=== PATIENT | male | born 1970 | race Caucasian/White ===

== ENCOUNTER 2018-05-01 09:39 | Outpatient (CLI) | payer BC, SELFPAY ==
[2018-05-01 13:02] LABS: Absolute Basophil Count 0.02 k/cumm (0.0-0.2); Absolute Eosinophil Count 0.11 k/cumm (0.0-0.7); Absolute Lymphocyte Count 1.69 k/cumm (1.2-3.4); Basophils % 0.5; Eosinophils % 2.5; HCT 45.3 % (40.0-50.0); HGB 15.1 g/dL (13.5-17.5); Lymphocytes % 39.1; Mean Corp. HGB Concentration 33.3 g/dL (32.0-36.0); Mean Corpuscular Hemoglobin 28.4 pg (27.0-33.0); Mean Corpuscular Volume 85.2 fL (80-95); Mean Platelet Volume 10.4 fL (8.0-11.0); Monocytes % 6.9; Platelet Count 232 x1000/uL (130-400); RBC 5.32 m/cumm (4.50-6.00); RBC Distribution Width 13.6 % (11.8-14.1); White Blood Cell Count 4.32 k/cumm (4.4-10.8)
[2018-05-01 13:28] LABS: Bilirubin Negative (Negative); Blood Negative (Negative); Clarity Clear; Glucose Negative (Negative); Ketones Negative (Negative); Leukocyte Esterase Negative (Negative); Nitrite Negative (Negative); Specific Gravity 1.025 (1.005-1.025); Urobilinogen 0.2 EU/dL (Up TO 0.2); pH 5.5 (5-8)
[2018-05-01 13:29] LABS: ALT 45 U/L (12-78); AST 21 U/L (15-37); Albumin 4.2 g/dL (3.4-5.0); Alkaline Phosphatase 56 U/L (46-116); BUN 21 mg/dL (7-18); Bilirubin, Total 0.8 mg/dL (0.2-1.0); CREATININE 0.86 mg/dL (0.70-1.30); Calcium 8.6 mg/dL (8.5-10.1); Chloride 106 mmol/L (98-107); Cholesterol 183 mg/dL (50-200); Glucose 111 mg/dL (70-100); HDL Cholesterol 48 mg/dL (40-60); LDL CHOLESTEROL 122 mg/dL (<100); Potassium 4.4 mmol/L (3.5-5.1); Sodium 143 mmol/L (136-145); Total Protein 7.3 g/dL (6.4-8.2); Triglyceride 69 mg/dL (30-150)
[2018-05-01 14:56] LABS: ESR 8 MM/HR (0-15)
[2018-05-04 08:00] LABS: Vitamin D 25 Total 32.5 ng/ml (30-100)
[2018-05-04 12:52] LABS: Lyme Ab w Rflx to Lyme Confirm Positive
[2018-05-05 13:46] LABS: IgG Band(s) p41 kDa; IgG Western Blot Negative (Negative); IgM Band(s) SEE COMMENTS kDa; IgM Western Blot Negative (Negative); Western Blot Interpretation SEE COMMENTS
== END 2018-05-01 09:59 ==
PROVIDERS: PCP Family Medicine; Visit Provider Family Medicine
DX: R53.83 Other fatigue (principal); M79.18 Myalgia, other site; M25.50 Pain in unspecified joint; Z83.3 Family history of diabetes mellitus; Z87.442 Personal history of urinary calculi
CPT/HCPCS: 36415; 80053; 80061; 82306; 83721; 85652; 81003; 85025; 86617; 86618

== ENCOUNTER 2018-11-27 02:07 | Outpatient (CLI) | payer BC, SELFPAY ==
[2018-11-27 11:05] LABS: Abs Immature Grans 0.01 k/cumm (0.0-0.09); Absolute Basophil Count 0.03 k/cumm (0.0-0.2); Absolute Eosinophil Count 0.42 k/cumm (0.0-0.7); Absolute Lymphocyte Count 1.41 k/cumm (1.2-3.4); Absolute Monocyte Count 0.26 k/cumm (0.11-0.7); Absolute Neutrophil Count 3.61 k/cumm (1.2-6.7); Basophils % 0.5; Eosinophils % 7.3; HCT 44.8 % (40.0-50.0); Immature Grans % 0.2; Lymphocytes % 24.6; Mean Corp. HGB Concentration 33.5 g/dL (32.0-36.0); Mean Corpuscular Hemoglobin 28.2 pg (27.0-33.0); Mean Corpuscular Volume 84.2 fL (80-95); Mean Platelet Volume 10.4 fL (8.0-11.0); Monocytes % 4.5; Neutrophils % 62.9; Platelet Count 241 x1000/uL (130-400); RBC 5.32 m/cumm (4.50-6.00); RBC Distribution Width 14.1 % (11.8-14.1); White Blood Cell Count 5.74 k/cumm (4.4-10.8)
[2018-11-27 11:16] LABS: Hemoglobin A1C 5.8 % (4.5-6.2)
[2018-11-27 11:24] LABS: ALT 46 U/L (12-78); AST 20 U/L (15-37); Alkaline Phosphatase 59 U/L (46-116); Anion Gap 8.4 mmol/L (3-11); BUN 20 mg/dL (7-18); Bilirubin, Total 0.8 mg/dL (0.2-1.0); CO2 26.6 mmol/L (21.0-32.0); CREATININE 0.88 mg/dL (0.70-1.30); Calcium 8.8 mg/dL (8.5-10.1); Chloride 106 mmol/L (98-107); Cholesterol 198 mg/dL (50-200); Glucose 111 mg/dL (70-100); HDL Cholesterol 48 mg/dL (40-60); LDL CHOLESTEROL 134 mg/dL (<100); Potassium 4.5 mmol/L (3.5-5.1); Sodium 141 mmol/L (136-145); TSH (W/Ref FT4) 0.46 uIU/mL (0.358-3.74); Total Protein 7.1 g/dL (6.4-8.2); Triglyceride 56 mg/dL (30-150)
[2018-11-30 11:13] LABS: PSA, Screening 0.3 ng/ml (0-2.5)
== END 2018-11-27 02:27 ==
PROVIDERS: PCP Family Medicine; Visit Provider Family Medicine
DX: I95.9 Hypotension, unspecified (principal); R53.83 Other fatigue; R73.01 Impaired fasting glucose; Z83.3 Family history of diabetes mellitus; Z12.5 Encounter for screening for malignant neoplasm of prostate
CPT/HCPCS: 36415; 80053; 80061; 83721; 84153; 83036; 84443; 85025

== ENCOUNTER 2018-12-04 08:42 | Outpatient (CLI) | payer BC, SELFPAY ==
[2018-12-08 15:42] LABS: Testosterone, Free 5.68 ng/dL (4.26-16.4); Testosterone, Total 203 ng/dL (240-950)
== END 2018-12-04 09:02 ==
PROVIDERS: PCP Family Medicine; Visit Provider Family Medicine
DX: N52.9 Male erectile dysfunction, unspecified (principal); R53.83 Other fatigue
CPT/HCPCS: 36415; 84402; 84403

== ENCOUNTER 2021-10-26 10:28 | Outpatient (CLI) | payer BC, SELFPAY ==
[2021-10-26 11:45] LABS: Source Nasal/Nares
[2021-10-26 14:08] LABS: COVID-19 PCR Negative (Negative)
== END 2021-10-26 10:29 | disposition home or self-care (01) ==
LOC: LBO 10:29
PROVIDERS: PCP Nurse Practitioner Family; Visit Provider Surgery
DX: Z20.822 Contact with and (suspected) exposure to COVID-19 (principal)
CPT/HCPCS: 87635

== ENCOUNTER 2021-10-29 11:17 | Day surgery (SDC) | payer BC, SELFPAY ==
--- NOTE | 2021-10-29 06:51 | COLE_ITS ---
Colonoscopy Report Date of procedure: 10/29/21 Pre-op diagnosis general: Diarrhea and unintentional weight loss Post-op diagnosis procedure note: same Procedure: Colonoscopy with biopsies Surgeon: Regina Maria Anesthesia Type: General:No Airway Estimated blood loss (mL): 5 Pathology: other (randome biopsies of the large intestine) Complications: None Disposition: same day Indications: Mr. Maria is a pleasant 51-year-old gentleman with unintentional weight loss and worsening diarrhea.? He also has crampy abdominal pain which does ease off once he goes to the bathroom.? He has no family history of colon cancer, ulcerative colitis or Crohn's disease.? We discussed colonoscopy to rule out inflammatory bowel disease or cancer.? Procedure in detail including the risks and benefits.? We reviewed the prep with the patient. Risks, benefits and complications have been reviewed. Complications include but are not limited to bleeding, pain, perforation, missed small lesion/polyp, sore throat, aspiration and adverse reaction to the medications. Questions were enter tained and answered to their satisfaction and they wished to proceed. No guarantees were given or implied. Proceed with colonoscopy under sedation Prep: Miralax/Dulcolax Procedure Start Time: 13:34 Procedure End Time: 13:57 Retraction Time: 15 minutes Findings: Normal appearing large intestine Procedure Description: After informed consent was obtained the patient was taken to the procedure room and placed in a left decubitous position. Monitors were applied and a time out was done. The patients name, date of , procedure, allergies to medications and metal in their body was reviewed. The patient was then sedated. Once sedated and comfortable a rectal exam was done. External exam was normal. Internal exam revealed a normal sphincter tone and no palpable masses. The prostate felt smooth. The scope was then introduced and retro-flexed. No internal hemorrhoids, polyps or masses were identified on retro-flexion. The scope was then advanced to the cecum without difficulty. The ileocecal vlave and appendiceal orifice were identified. The prep was good. The scope was then slowly retracted over 15 minutes back into the rectum. There were no polyps. There was no diverticulosis noted. The scope was removed and the patient was woken up and taken back to Same day surgery in stable condition. The patient tolerated the procedure well and there were no immediate complications. Follow up: The patient should follow up in 10 years unless they develop changes in bowel habits or other new gastrointestinal complaints.
--- NOTE | 2021-10-29 06:52 | W.PM.DSUDISC ---
Discharge Plan Disposition Patient Disposition: HOME Condition: Good Discharge Details Reason For Visit: Colonoscopy Attending Provider: Regina Maria Primary Care Provider: Franck Ivey Home Meds and New Rx's Prescriptions: New cholestyramine (with sugar) 4 gram powder in packet 1 packet PO TID Qty: 60 0RF Rx Instructions: administer w/meal; avoid other meds within 1hr before or 4-6hr after dose Discontinued polyethylene glycol 3350 17 gram powder in packet 255 g PO DAILY Qty: 15 0RF Rx Instructions: Mix 255 gm in 64 oz of gatorade or juice. Drink as directed bisacodyl [Dulcolax (bisacodyl)] 5 mg tablet,delayed release (DR/EC) 5 mg PO ONCE Qty: 4 0RF Rx Instructions: Take as directed for your colonoscopy Discharge Instructions Additional Instructions: Findings: Your intestine looked normal. I did do biopsies. I will let you know the results. Medications: Please try the cholestyramine and see if it helps with the diarrhea Follow up: 2-3 weeks Please call if you develop: fevers >101.5 Nausea or Vomiting Abdominal pain that is not transient Rectal bleeding that is more then a tbsp A hard abdomen and inability to pass gas DAY SURGERY UNIT POST ENDOSCOPY INSTRUCTIONS Instructions for everyone who is given Anesthesia: For your safety, please do the following for the next 24 Hours: a. Do not drive or operate dangerous equipment b. Do not drink alcohol beverages or use any recreational drugs for the first 24 hours or while taking pain medications. The medications in your body may have a reaction that can be dangerous. c. Do not make any important decisions or sign any important papers 1. Generally there are no restrictions on your activity after a day or so has gone by, but you may feel a bit fatigued for a few days. 2. After you arrive home you may have a light meal and return to a normal diet as you can tolerate it without feeling sick to your stomach. 3. After surgery, you may feel pain or discomfort. This should be only transient, but if it persists please contact your doctor. 4. If there are any questions regarding the findings of your procedure, please feel free to contact your doctor. 6. If you are unable to contact your doctor with a problem, contact the hospital at [phone]. 7. Continue all your regular medications unless directed otherwise. I understand the above instructions and have no questions. Signature of Patient or Responsible Adult Escort Date/Time Name of Responsible Adult Escort Signature of Nurse Date/Time Stand Alone Forms: Anesthesia Discharge Inst.Hallie (DSU) Activity:: Activity as Tolerated Diet:: As Tolerated Discharge Orders Discharge Orders: Discharge Order (Routine); Ordered 10/29/21 Ordered By: Regina Maria
[2021-10-29 11:48] VITALS: BP 132/95; PULSE 77; RESP 16; TEMP 36.7; O2SAT 98
--- NOTE | 2021-10-29 12:23 | W.ANESPRE ---
General Info Date of Service Date Performed: 10/29/21 Height: 6 ft 1 in Weight: 109.2 kg Body Mass Index (BMI): 31.7 Surgical Procedure: Operation Date: 10/29/21 13:20 Proposed Procedure Side Surgeon p Colonoscopy Regina Maria MD Meds Allergies and Home Medications Allergies Allergy/AdvReac Type Severity Reaction Status Date / Time No Known Allergies Allergy Verified 10/29/21 11:54 Home Medication Medication Instructions Recorded bisacodyl 5 mg tablet,delayed 5 mg PO ONCE #4 tab 10/26/21 release (Dulcolax (bisacodyl)) polyethylene glycol 3350 17 gram 255 g PO DAILY #15 ea 10/26/21 oral powder packet Current Visit Medications: Current Medications Generic Name Dose Route Start Last Admin Trade Name Freq PRN Reason Stop Dose Admin Hyoscyamine Sulfate 0.125 mg 10/29/21 06:53 Hyoscyamine 0.125 Mg Sl/Oral/Chew SL DIRECTED PRN Ringer's Solution 1,000 mls @ 80 mls/hr 10/29/21 06:00 IV 11/25/21 23:59 [facility] IV Miscellaneous Supplies 1 each 10/29/21 06:00 Iv Access IV 11/25/21 23:59 DIRECTED ULYSSES Ondansetron HCl 4 mg 10/29/21 06:53 Ondansetron 4 Mg/2 Ml Vial IVP Q4H PRN PRN Nausea / Vomiting Sodium Chloride 0 ml 10/29/21 06:00 Normal Saline Flush 10 Ml Syr IV 11/25/21 23:59 PRN PRN Sodium Chloride 0 ml 10/29/21 06:00 Normal Saline 10 Ml Vial IJ 11/25/21 23:59 DIRECTED PRN Sterile Water 0 ml 10/29/21 06:00 Water,Injection,Sterile 10 Ml Vial IJ 11/25/21 23:59 DIRECTED PRN PFSH Active Problems Active Problems: Problem Status Onset Code Family history of diabetes mellitus Z83.3 Impaired fasting glucose R73.01 Unintended weight loss R63.4 Diarrhea R19.7 Medical History Medical History ADD (attention deficit disorder) Back pain Calculus of left kidney (11/19/16) Conjunctivitis Fatigue Right ureteral stone (08/11/16) Surgical History Surgical History (Updated 10/29/21 @ 11:54 by Jenni Dobbins) H/O hand surgery 1999 RECONSTRUCTIVE LEFT HAND SURGERY History of cystoscopy Tobacco Smoking/Tobacco Use Status: Never Alcohol Alcohol Intake: never Substance Use Substance use: Never Substance use type: does not use Vital Signs and Lab Results Vital Signs Most Recent Vital Signs in EMR: Most Recent Vital Signs Temp Pulse Resp BP Pulse Ox 36.7 C 77 16 132/95 H 98 10/29/21 11:48 10/29/21 11:48 10/29/21 11:48 10/29/21 11:48 10/29/21 11:48 Lab Results Blood Type / Crossmatch: No Data to Display Complete Blood Count: No Data to Display Complete Metabolic Panel: No Data to Display Liver Function Panel: No Data to Display Coagulation Panel: No Data to Display Cardiac Panel: No Data to Display Arterial Blood Gas: No Data to Display Venous Blood Gas: No Data to Display Pancreas Panel: No Data to Display Thyroid Panel: No Data to Display Infectious Disease: Coronavirus (COVID-19)(PCR) Negative (Negative) 10/26/21 10:30 10/26/21 Coronavirus 2019 Source Nasal/Nares 10/26/21 10:30 10/26/21 Blood Cultures: No Data to Display Toxicology Panel: No Data to Display Anesthesia Assessment and Plan Anesthesia History Personal History: No History of Anesthesia Complications Family History: No Family History of Anesthesia Complications Exercise Tolerance Exercise Tolerance: Metabolic Equivalents>4 Pertinent Negatives Pertinent Negatives: No Symptoms of GERD Cardiac & Pulmonary Exam Cardiac Exam: Normal S1/S2 Heart Sounds Pulmonary Exam: Clear Bilateral Breath Sounds Implantable Cardiac Device Does patient have a Pacemaker or an ICD?: No Airway Exam Known Difficult Airway: No Mallampati Class: 2 Mouth Opening: Normal (> 3cm) Thyromental Distance: Greater than 3 cm Neck Range of Motion: Full ROM Neck Circumference: Normal Teeth Condition: Normal Dentition ASA Classification ASA Score: ASA 2 Emergency Case?: No NPO Status NPO Status: NPO Clears >2 hours, Solids >8 hours Anesthesia Plan Resuscitation Status: Full Code Anesthesia Technique: General Anesthesia Airway Planned: Natural Airway Monitors Used: Standard Monitors
[2021-10-29] MEDS: Lactated Ringers 1,000 ML 80 ML IV (12:26)
[2021-10-29 12:28] VITALS: BMI 31.7
--- NOTE | 2021-10-29 13:44 | BOWEL_PTH ---
PATIENT: Guille Maria LOC: [facility] U#:[id number] AGE/SX: 51/M ROOM: RE10/29/[address]: Regina Maria MD : 1970 BED: DIS: 10/29/2021 SPEC #: [id number] RECD: 10/29/21 17:12 STATUS: KIKO RE #: [id number] JACKELINE: 10/29/21 13:[address]: Regina Maria DEPT: Surgical Specimen RECD BY: Deb Herman ENTERED: 10/29/21 17:16 SP TYPE: Bowel OTHR DR: Franck Ivey, [employer] Tissues: 1 - BIOPSY BOWEL 2 - BIOPSY BOWEL 3 - BIOPSY BOWEL 4 - BIOPSY BOWEL Procedures: GROSS AND MICRO LEVEL 4 Comments: [id number]
[2021-10-29 14:02] VITALS: BP 115/75; PULSE 77; RESP 16; TEMP 36.5; O2SAT 98
--- NOTE | 2021-10-29 14:16 | W.ANESPOSTOP ---
Postoperative Evaluation Date, Time and Location Date Performed: 10/29/21 Time Performed: 14:16 Patient Location: Day Surgery Unit Vital Signs Most Recent Imported Vital Signs: Most Recent Vital Signs Temp Pulse Resp BP Pulse Ox 36.5 C 77 16 115/75 98 10/29/21 14:02 10/29/21 14:02 10/29/21 14:02 10/29/21 14:02 10/29/21 14:02 Pain Score Most Recent Pain Score: Most Recent Pain Score Pain Level 0 10/29/21 14:02 Assessment Mental Status: Awake (Alert & Oriented to Patient Baseline) Airway and Respiratory Function: Patent airway with normal (patient baseline) respiratory exam Cardiovascular Function: Hemodynamically Stable Hydration Status: Adequately Hydrated Nausea & Vomiting: No Nausea or Vomiting Pain: Pt. Denies Any Pain Peripheral Nerve Block: Patient did not receive a nerve block
[2021-10-29 14:34] VITALS: BP 122/87; PULSE 64; RESP 16; TEMP 36.6; O2SAT 99
== END 2021-10-29 14:43 | disposition home or self-care (01) ==
LOC: SUR 11:17
PROVIDERS: PCP Nurse Practitioner Family; Visit Provider Surgery
PROC: 0DJD8ZZ Inspection of Lower Intestinal Tract, Via Natural or Artificial Opening Endoscopic (ICD-10-PCS; CPT 45378; principal; 2021-10-29 13:15)
DX: R19.7 Diarrhea, unspecified (principal); R63.4 Abnormal weight loss; R10.9 Unspecified abdominal pain; K63.89 Other specified diseases of intestine
CPT/HCPCS: 45380; 88305; J2704

== ENCOUNTER 2021-10-31 02:55 | Outpatient (CLI) | payer BC, SELFPAY ==
[2021-10-31 12:48] LABS: HCT 40.4 % (40.0-50.0); HGB 13.9 g/dL (13.5-17.5); MCH 27.4 pg (27.0-33.0); MCHC 34.4 % (32.0-36.0); MCV 79.5 fL (80-95); MPV 9.6 fL (8.0-11.0); Platelet Count 254 10^3/uL (130-400); RBC 5.08 10^6/uL (4.36-5.78); RDW 12.6 % (11.8-14.1); RDW-SD 36.1 fL; WBC 5.12 10^3/uL (4.4-10.8)
[2021-10-31 13:01] LABS: Hemoglobin A1C 6.2 % (<5.7)
[2021-10-31 13:43] LABS: ALT 48 U/L (16-63); AST 19 U/L (15-37); Albumin 3.6 g/dL (3.4-5.0); Alkaline Phosphatase 79 U/L (46-116); Anion Gap 12.5 mmol/L (3-11); BUN 22 mg/dL (7-18); Bilirubin, Total 0.7 mg/dL (0.2-1.0); CO2 23.5 mmol/L (21.0-32.0); CREATININE 0.8 mg/dL (0.70-1.30); Calcium 8.8 mg/dL (8.5-10.1); Calculated LDL 94 mg/dL (<100); Chloride 107 mmol/L (98-107); Cholesterol 172 mg/dL (<200); Glucose 142 mg/dL (74-106); HDL Cholesterol 42 mg/dL (40-60); Sodium 143 mmol/L (136-145); Total Protein 6.8 g/dL (6.4-8.2); Triglyceride 181 mg/dL (<150)
[2021-10-31 14:06] LABS: TSH < 0.01 uIU/mL (0.36-3.74)
[2021-10-31 22:25] LABS: PSA, Screening 0.3 ng/mL (<=3.5)
== END 2021-10-31 02:56 | disposition home or self-care (01) ==
LOC: LBO 02:55
PROVIDERS: PCP Nurse Practitioner Family; Visit Provider Nurse Practitioner Family
DX: R53.83 Other fatigue (principal); Z13.1 Encounter for screening for diabetes mellitus; Z13.29 Encounter for screening for other suspected endocrine disorder; Z13.220 Encounter for screening for lipoid disorders; Z12.5 Encounter for screening for malignant neoplasm of prostate
CPT/HCPCS: 36415; 80053; 80061; 84153; 85027; 83036; 84443

== ENCOUNTER 2021-11-15 02:30 | Outpatient (CLI) | payer BC, SELFPAY ==
[2021-11-15 17:49] LABS: FREE T4 2.53 ng/dL (0.76-1.46)
[2021-11-15 18:18] LABS: TSH < 0.01 uIU/mL (0.36-3.74)
== END 2021-11-15 02:31 | disposition home or self-care (01) ==
LOC: LBO 02:30
PROVIDERS: PCP Nurse Practitioner Family; Visit Provider Nurse Practitioner Family
DX: R79.89 Other specified abnormal findings of blood chemistry (principal); R73.03 Prediabetes; E07.89 Other specified disorders of thyroid
CPT/HCPCS: 36415; 84439; 84443; 84481

== ENCOUNTER 2022-01-10 03:56 | Outpatient (CLI) | payer BC, SELFPAY ==
[2022-01-10 15:28] LABS: FREE T4 1.91 ng/dL (0.76-1.46)
[2022-01-10 15:36] LABS: TSH < 0.01 uIU/mL (0.36-3.74)
[2022-01-10 22:28] LABS: T3, Total 308 ng/dL (97-169)
== END 2022-01-10 03:57 | disposition home or self-care (01) ==
LOC: LBO 03:56
PROVIDERS: PCP Nurse Practitioner Family; Visit Provider Student in an Organized Health Care Education/Training Program
DX: E05.90 Thyrotoxicosis, unspecified without thyrotoxic crisis or storm (principal)
CPT/HCPCS: 36415; 84439; 84443; 84480

== ENCOUNTER 2022-01-29 03:31 | Outpatient (CLI) | payer BC, SELFPAY ==
[2022-01-29 15:34] LABS: Abs Immature Grans 0.03 10^3/uL (0.0-0.06); Absolute Basophil Count 0.03 10^3/uL (0.0-0.2); Absolute Eosinophil Count 0.15 10^3/uL (0.0-0.7); Absolute Lymphocyte Count 2.21 10^3/uL (1.2-3.4); Absolute Monocyte Count 0.42 10^3/uL (0.1-0.8); Absolute Neutrophil Count 4.33 10^3/uL (1.2-6.7); Basophils % 0.4; Eosinophils % 2.1; HCT 40.7 % (40.0-50.0); HGB 13.7 g/dL (13.5-17.5); Immature Grans % 0.4; Lymphocytes % 30.8; MCH 27.6 pg (27.0-33.0); MCHC 33.7 % (32.0-36.0); MCV 82 fL (80-95); MPV 9.9 fL (8.0-11.0); Monocytes % 5.9; Neutrophils % 60.4; Platelet Count 295 10^3/uL (130-400); RBC 4.97 10^6/uL (4.36-5.78); RDW 14.1 % (11.8-14.1); RDW-SD 41.3 fL; WBC 7.17 10^3/uL (4.4-10.8)
[2022-01-29 17:11] LABS: FREE T4 1.71 ng/dL (0.76-1.46)
[2022-01-29 17:16] LABS: TSH < 0.01 uIU/mL (0.36-3.74)
[2022-01-29 22:39] LABS: T3, Total 301 ng/dL (97-169)
== END 2022-01-29 03:32 | disposition home or self-care (01) ==
PROVIDERS: PCP Nurse Practitioner Family; Visit Provider Student in an Organized Health Care Education/Training Program
DX: E05.90 Thyrotoxicosis, unspecified without thyrotoxic crisis or storm (principal)
CPT/HCPCS: 36415; 84439; 84443; 84480; 85025

== ENCOUNTER 2022-02-27 03:11 | Outpatient (CLI) | payer BC, SELFPAY ==
[2022-02-27 16:41] LABS: FREE T4 1.25 ng/dL (0.76-1.46)
[2022-02-27 16:47] LABS: TSH < 0.01 uIU/mL (0.36-3.74)
[2022-02-27 21:57] LABS: T3, Total 220 ng/dL (97-169)
== END 2022-02-27 03:12 | disposition home or self-care (01) ==
LOC: LBO 03:11
PROVIDERS: PCP Nurse Practitioner Family; Visit Provider Student in an Organized Health Care Education/Training Program
DX: E05.90 Thyrotoxicosis, unspecified without thyrotoxic crisis or storm (principal)
CPT/HCPCS: 36415; 84439; 84443; 84480

== ENCOUNTER 2022-04-26 02:14 | Outpatient (CLI) | payer BC, SELFPAY ==
[2022-04-26 13:44] LABS: FREE T4 0.71 ng/dL (0.76-1.46); TSH 0.22 uIU/mL (0.36-3.74)
[2022-04-26 22:10] LABS: T3, Total 138 ng/dL (97-169)
== END 2022-04-26 02:15 | disposition home or self-care (01) ==
LOC: LBO 02:14
PROVIDERS: PCP Nurse Practitioner Family; Visit Provider Student in an Organized Health Care Education/Training Program
DX: E05.90 Thyrotoxicosis, unspecified without thyrotoxic crisis or storm (principal)
CPT/HCPCS: 36415; 84439; 84443; 84480

== ENCOUNTER 2022-06-05 03:43 | Outpatient (CLI) | payer BC, SELFPAY ==
[2022-06-05 15:56] LABS: Abs Immature Grans 0.02 10^3/uL (0.0-0.06); Absolute Basophil Count 0.02 10^3/uL (0.0-0.2); Absolute Eosinophil Count 0.15 10^3/uL (0.0-0.7); Absolute Lymphocyte Count 2.74 10^3/uL (1.2-3.4); Absolute Monocyte Count 0.44 10^3/uL (0.1-0.8); Absolute Neutrophil Count 3.23 10^3/uL (1.2-6.7); Basophils % 0.3; Eosinophils % 2.3; HCT 44.7 % (40.0-50.0); HGB 15.1 g/dL (13.5-17.5); Immature Grans % 0.3; Lymphocytes % 41.5; MCH 28.6 pg (27.0-33.0); MCHC 33.8 % (32.0-36.0); MCV 85 fL (80-95); MPV 9.5 fL (8.0-11.0); Monocytes % 6.7; Neutrophils % 48.9; Platelet Count 265 10^3/uL (130-400); RBC 5.28 10^6/uL (4.36-5.78); RDW 13.7 % (11.8-14.1); RDW-SD 42.9 fL
[2022-06-05 16:49] LABS: ALT 32 U/L (16-63); AST 17 U/L (15-37); Albumin 4.3 g/dL (3.4-5.0); Alkaline Phosphatase 88 U/L (46-116); Bilirubin, Direct 0.1 mg/dL (0.0-0.2); Bilirubin, Total 0.8 mg/dL (0.2-1.0); FREE T4 0.78 ng/dL (0.76-1.46); TSH 2.79 uIU/mL (0.36-3.74); Total Protein 7.9 g/dL (6.4-8.2)
[2022-06-05 22:32] LABS: T3, Total 163 ng/dL (97-169)
== END 2022-06-05 03:44 | disposition home or self-care (01) ==
PROVIDERS: PCP Nurse Practitioner Family; Visit Provider Student in an Organized Health Care Education/Training Program
DX: E05.90 Thyrotoxicosis, unspecified without thyrotoxic crisis or storm (principal)
CPT/HCPCS: 80076; 84439; 84443; 84480; 85025

== ENCOUNTER 2022-07-17 02:15 | Outpatient (CLI) | payer BC, SELFPAY ==
[2022-07-17 13:07] LABS: Abs Immature Grans 0.02 10^3/uL (0.0-0.06); Absolute Basophil Count 0.03 10^3/uL (0.0-0.2); Absolute Eosinophil Count 0.21 10^3/uL (0.0-0.7); Absolute Lymphocyte Count 2.31 10^3/uL (1.2-3.4); Absolute Monocyte Count 0.41 10^3/uL (0.1-0.8); Absolute Neutrophil Count 3.32 10^3/uL (1.2-6.7); Basophils % 0.5; Eosinophils % 3.3; HGB 14.5 g/dL (13.5-17.5); Immature Grans % 0.3; Lymphocytes % 36.7; MCH 29.2 pg (27.0-33.0); MCHC 33.7 % (32.0-36.0); MCV 87 fL (80-95); MPV 9.6 fL (8.0-11.0); Monocytes % 6.5; Neutrophils % 52.7; Platelet Count 223 10^3/uL (130-400); RBC 4.96 10^6/uL (4.36-5.78); RDW 13.4 % (11.8-14.1); RDW-SD 42.3 fL
[2022-07-17 14:04] LABS: ALT 33 U/L (16-63); AST 23 U/L (15-37); Albumin 4.2 g/dL (3.4-5.0); Alkaline Phosphatase 76 U/L (46-116); Bilirubin, Direct 0.2 mg/dL (0.0-0.2); FREE T4 0.98 ng/dL (0.76-1.46); TSH 1.66 uIU/mL (0.36-3.74); Total Protein 7.7 g/dL (6.4-8.2)
[2022-07-17 22:45] LABS: T3, Total 154 ng/dL (97-169)
== END 2022-07-17 02:16 | disposition home or self-care (01) ==
PROVIDERS: PCP Nurse Practitioner Family; Visit Provider Student in an Organized Health Care Education/Training Program
DX: E05.90 Thyrotoxicosis, unspecified without thyrotoxic crisis or storm (principal)
CPT/HCPCS: 36415; 80076; 84439; 84443; 84480; 85025

== ENCOUNTER 2022-09-23 02:57 | Outpatient (CLI) | payer BC, SELFPAY ==
[2022-09-23 14:37] LABS: Abs Immature Grans 0.03 10^3/uL (0.0-0.06); Absolute Basophil Count 0.04 10^3/uL (0.0-0.2); Absolute Eosinophil Count 0.14 10^3/uL (0.0-0.7); Absolute Lymphocyte Count 2.61 10^3/uL (1.2-3.4); Absolute Monocyte Count 0.37 10^3/uL (0.1-0.8); Absolute Neutrophil Count 3.45 10^3/uL (1.2-6.7); Basophils % 0.6; Eosinophils % 2.1; HCT 44.2 % (40.0-50.0); Immature Grans % 0.5; Lymphocytes % 39.3; MCH 28.8 pg (27.0-33.0); MCHC 33.9 % (32.0-36.0); MCV 85 fL (80-95); MPV 9.7 fL (8.0-11.0); Monocytes % 5.6; Neutrophils % 51.9; Platelet Count 254 10^3/uL (130-400); RBC 5.21 10^6/uL (4.36-5.78); RDW 12.8 % (11.8-14.1); RDW-SD 39.1 fL; WBC 6.64 10^3/uL (4.4-10.8)
[2022-09-23 15:18] LABS: ALT 41 U/L (16-63); AST 16 U/L (15-37); Albumin 4.3 g/dL (3.4-5.0); Alkaline Phosphatase 66 U/L (46-116); Bilirubin, Direct 0.1 mg/dL (0.0-0.2); Bilirubin, Total 0.6 mg/dL (0.2-1.0); FREE T4 0.94 ng/dL (0.76-1.46); TSH 1.79 uIU/mL (0.36-3.74); Total Protein 7.8 g/dL (6.4-8.2)
[2022-09-23 22:41] LABS: T3, Total 148 ng/dL (97-169)
[2022-09-23 23:17] LABS: Thyroperoxidase Antibody >1300 U/mL (<=60)
[2022-09-26 16:14] LABS: Thyroid Stimulating Immunoglob <1.0 TSI index (<=1.3)
== END 2022-09-23 02:58 | disposition home or self-care (01) ==
LOC: LBO 02:57
PROVIDERS: PCP Nurse Practitioner Family; Visit Provider Student in an Organized Health Care Education/Training Program
DX: E05.90 Thyrotoxicosis, unspecified without thyrotoxic crisis or storm (principal)
CPT/HCPCS: 36415; 80076; 84439; 84443; 84445; 84480; 85025; 86376

== ENCOUNTER 2022-10-29 03:13 | Outpatient (CLI) | payer BC, SELFPAY ==
[2022-10-29 15:44] LABS: FREE T4 1.03 ng/dL (0.76-1.46); TSH 0.33 uIU/mL (0.36-3.74)
[2022-10-30 20:33] LABS: T3, Total 182 ng/dL (97-169)
[2022-10-30 21:16] LABS: Thyroperoxidase Antibody >1300 U/mL (<=60)
[2022-11-04 16:09] LABS: Thyroid Stimulating Immunoglob <1.0 TSI index (<=1.3)
== END 2022-10-29 03:14 | disposition home or self-care (01) ==
LOC: LBO 03:13
PROVIDERS: PCP Nurse Practitioner Family; Visit Provider Student in an Organized Health Care Education/Training Program
DX: E05.90 Thyrotoxicosis, unspecified without thyrotoxic crisis or storm (principal)
CPT/HCPCS: 36415; 84439; 84443; 84445; 84480; 86376

== ENCOUNTER 2023-02-12 04:23 | Outpatient (CLI) | payer BC, SELFPAY ==
[2023-02-12 17:40] LABS: FREE T4 0.98 ng/dL (0.76-1.46); TSH 0.98 uIU/mL (0.36-3.74)
[2023-02-13 19:40] LABS: T3, Total 162 ng/dL (97-169)
== END 2023-02-12 04:24 | disposition home or self-care (01) ==
LOC: LBO 04:23
PROVIDERS: PCP Nurse Practitioner Family; Visit Provider Student in an Organized Health Care Education/Training Program
DX: E05.90 Thyrotoxicosis, unspecified without thyrotoxic crisis or storm (principal)
CPT/HCPCS: 36415; 84439; 84443; 84480

== ENCOUNTER 2023-03-05 01:33 | Outpatient (CLI) | payer BC, SELFPAY ==
--- NOTE | 2023-03-05 08:00 | DI.RAD_ITS ---
Exam(s) XR FOOT RT COMPLETE EXAM: XR FOOT RT COMPLETE CLINICAL HISTORY: Pain in the 2nd/3rd MTP joints area,m79.673. TECHNIQUE: 2D digital imaging was performed. Three views. COMPARISON: No exams were available for comparison FINDINGS: BONES: No acute fracture is present. No bony destructive lesion is seen. Tiny plantar calcaneal spur . JOINTS: No dislocation present. Mild narrowing 1st MTP joint. No significant hallux valgus. 2nd an d 3rd MTP joints appear normal. SOFT TISSUE: Normal. IMPRESSION: Mild degenerative changes of 1st MTP joint. DATA REPOSITORY: RADIATION DOSE DELIVERED:
== END 2023-03-05 01:53 ==
LOC: DI 01:33
PROVIDERS: PCP Nurse Practitioner Family; Visit Provider Nurse Practitioner Family
DX: M19.071 Primary osteoarthritis, right ankle and foot
CPT/HCPCS: 73630

== ENCOUNTER 2023-03-05 18:17 | Outpatient (CLI) | payer BC, SELFPAY ==
[2023-03-05 15:08] LABS: Calculated LDL 132 mg/dL (<100); Cholesterol 207 mg/dL (<200); HDL Cholesterol 47 mg/dL (40-60); Triglyceride 143 mg/dL (<150)
== END 2023-03-05 18:18 | disposition home or self-care (01) ==
LOC: LBO 18:17
PROVIDERS: PCP Nurse Practitioner Family; Visit Provider Nurse Practitioner Family
DX: Z13.220 Encounter for screening for lipoid disorders (principal)
CPT/HCPCS: 36415; 80061

== ENCOUNTER 2023-06-20 01:33 | Outpatient (CLI) | payer BC, SELFPAY ==
[2023-06-20 14:46] LABS: FREE T4 0.96 ng/dL (0.76-1.46); TSH 1.64 uIU/mL (0.36-3.74)
[2023-06-21 22:09] LABS: T3, Total 178 ng/dL (97-169)
== END 2023-06-20 01:34 | disposition home or self-care (01) ==
PROVIDERS: PCP Nurse Practitioner Family; Visit Provider Student in an Organized Health Care Education/Training Program
DX: M19.071 Primary osteoarthritis, right ankle and foot (principal)
CPT/HCPCS: 36415; 84439; 84443; 84480

== ENCOUNTER 2023-09-22 05:10 | Outpatient (CLI) | payer BC, SELFPAY ==
[2023-09-22 10:02] LABS: FREE T4 1.02 ng/dL (0.76-1.46); TSH 1.32 uIU/mL (0.36-3.74)
[2023-09-22 17:33] LABS: T3, Total 167 ng/dL (97-169)
[2023-09-24 16:47] LABS: Thyroid Stimulating Immunoglob <1.0 TSI index (<=1.3)
== END 2023-09-22 05:11 | disposition home or self-care (01) ==
PROVIDERS: PCP Nurse Practitioner Family; Visit Provider Student in an Organized Health Care Education/Training Program
DX: E05.90 Thyrotoxicosis, unspecified without thyrotoxic crisis or storm (principal)
CPT/HCPCS: 36415; 84439; 84443; 84445; 84480

== ENCOUNTER 2023-11-21 01:18 | Outpatient (CLI) | payer BC, SELFPAY ==
[2023-11-21 09:53] LABS: FREE T4 1.04 ng/dL (0.76-1.46); TSH 1.45 uIU/Ml (0.36-3.74)
[2023-11-21 18:14] LABS: T3, Total 177 ng/dL (97-169)
[2023-11-25 19:31] LABS: Thyroid Stimulating Immunoglob <1.0 TSI index (<=1.3)
== END 2023-11-21 01:19 | disposition home or self-care (01) ==
PROVIDERS: PCP Nurse Practitioner Family; Visit Provider Student in an Organized Health Care Education/Training Program
DX: E05.90 Thyrotoxicosis, unspecified without thyrotoxic crisis or storm (principal)
CPT/HCPCS: 36415; 84439; 84443; 84445; 84480

== ENCOUNTER 2024-03-26 01:21 | Outpatient (CLI) | payer BC, SELFPAY ==
[2024-03-26 12:08] LABS: Hemoglobin A1C 5.9 % (<5.7)
[2024-03-26 12:29] LABS: Calculated LDL 103 mg/dL (<100); Cholesterol 174 mg/dL (<200); HDL Cholesterol 44 mg/dL (40-60); TSH (W/Ref FT4) 0.79 uIU/mL (0.36-3.74); Triglyceride 139 mg/dL (<150)
[2024-03-26 22:37] LABS: PSA, Screening 0.3 ng/mL (<=3.5)
== END 2024-03-26 01:22 | disposition home or self-care (01) ==
PROVIDERS: PCP Nurse Practitioner Family; Visit Provider Nurse Practitioner Family
DX: E05.90 Thyrotoxicosis, unspecified without thyrotoxic crisis or storm (principal); Z13.1 Encounter for screening for diabetes mellitus; Z13.220 Encounter for screening for lipoid disorders; Z12.5 Encounter for screening for malignant neoplasm of prostate
CPT/HCPCS: 36415; 80061; 84153; 83036; 84443

== ENCOUNTER 2024-12-05 18:28 | Observation (INO) | payer BC, SELFPAY ==
[2024-12-05] VITALS (31 sets, daily range): BP systolic 128–171; BP diastolic 69–95; PULSE 50–69; RESP 13–25; TEMP 35.9–36.5; O2SAT 95–98
--- NOTE | 2024-12-05 18:30 | RT.EKG_ITS ---
APPROVED REPORT Exam: Resting ECG Reason for Exam: dizzy Patient Location: E HR:61 bpm ECG Measurements Heart Rate 61 AXIS MS 171 P 55 QRSd 96 QRS -21 QT 419 T 28 QTc 423 Conclusion Sinus rhythm, rate 61 No interval abnormalities No STEMI No priors available for comparison
--- NOTE | 2024-12-05 19:00 | DI.CT_ITS ---
Exam(s) CT BRAIN NECK CTA EXAM: CT BRAIN NECK CTA CLINICAL HISTORY: dizziness/JOE/nausea x 2 days, confusion 1 hr ago. TECHNIQUE: Imaging Protocol: Axial CT angiography was performed with multi-slice acquisition and mu lti-planar and/or 3D reconstructions. CONTRAST MATERIAL: Intravenous: Omnipaque 350 contrast volume:70 mL COMPARISON: No exams were available for comparison FINDINGS: CT Head W/O and W: Ventricles and Extra axial spaces: Normal in size and morphology for the patient's age. Hemorrhage: None. Cerebral parenchyma: There is an area of decreased attenuation in the anterior limb of the internal c apsule on the right. There is no mass effect. Midline shift: None. Brainstem/Cerebellum: Normal. Calvarium: Normal. Visualized Paranasal sinuses/Mastoids: Bilateral mucous retention cysts are seen in the maxillary sin uses. The remaining visualized paranasal sinuses and mastoid air cells are clear. Soft Tissues: Unremarkable. Enhancement: Unremarkable. CTA Neck W: Common Carotid: Right: No dissection, occlusion or significant stenosis. Left: No dissection, occlusion or significant stenosis. External Carotid: Right: No occlusion or significant stenosis. Left: No occlusion or significant stenosis. Internal Carotid: Right: No dissection, occlusion or significant stenosis. Left: No dissection, occlusion or significant stenosis. Vertebral Artery: Right: No dissection, occlusion or significant stenosis. Left: No dissection, occlusion or significant stenosis. Lung Apices: Normal. Bones: Within normal limits for the patient's age. Soft Tissues: Normal. Thyroid gland: There is a multinodular thyroid gland. The largest nodule measures 3.7 x 3.9 cm and i s located in the inferior left lobe. Nonemergent thyroid ultrasound is recommended for further evalu ation. CTA Brain W: Internal Carotid Arteries: Normal. Anterior Cerebral Arteries: Right: No aneurysm, occlusion or significant stenosis. Left: No aneurysm, occlusion or significant stenosis. Middle Cerebral Arteries: Right: No aneurysm, occlusion or significant stenosis. Left: No aneurysm, occlusion or significant stenosis. Posterior Cerebral Arteries: Right: No aneurysm, occlusion or significant stenosis. Left: No aneurysm, occlusion or significant stenosis. Vertebral Arteries: Right: No aneurysm, occlusion or significant stenosis. Left: No aneurysm, occlusion or significant stenosis. Basilar Artery: No aneurysm, occlusion or significant stenosis. IMPRESSION: 1. No large vessel occlusion or significant stenosis on the CT angiography of the head. 2. Area of decreased attenuation in the anterior limb of the right internal capsule likely reflecting a lacunar infarct. MRI of the brain may be obtained for further characterization. 3. No occlusion or significant stenosis on the CT angiography of the neck. 4. Multinodular thyroid gland. Nonemergent thyroid ultrasound is recommended for further evaluation. Unexpected findings RADIATION DOSE DELIVERED: 2,384.96mGy.cm Total DLP DATA REPOSITORY: All CT scans at this facility are submitted to the National Radiology Data Registry (NRDR) Dose Index Registry (DIR) with the [employer] (A[employer]). RADIATION OPTIMIZATION: All CT scans at this facility use at least one of these dose optimization te chniques: automated exposure control; mA and/or kV adjustment per patient size (includes targeted exa ms where dose is matched to clinical indication); or iterative reconstruction.
--- NOTE | 2024-12-05 19:00 | DI.RAD_ITS ---
Exam(s) XR CHEST 2V PA LATERAL EXAM: XR CHEST 2V PA LATERAL CLINICAL HISTORY: CVA workup TECHNIQUE: 2D digital imaging was performed of the chest. Two images were obtained. PA and lateral views were obtained. COMPARISON: No exams were available for comparison FINDINGS: MEDIASTINUM: Normal. HEART: Normal. PULMONARY VASCULATURE: Normal. LUNGS: Clear. PLEURAL SPACE: No pleural effusion or pneumothorax. BONE:Within normal limits for the patient's age. OTHER FINDINGS:Normal. IMPRESSION: 1. No acute pulmonary findings. 2. The preliminary [facility] report was reviewed. DATA REPOSITORY: RADIATION DOSE DELIVERED:
--- NOTE | 2024-12-05 19:18 | ED.GENADUL_ITS ---
Discharge Plan Discharge Details Chief Complaint: Dizzy/Sync Admit Date/Time: 12/05/24 21:54 Admit Provider: Guille Kinsey Attending Provider: Guille Kinsey Primary Care Provider: Franck Ivey ED Provider: Bijal Evans HPI General Date/Time Provider Initiated Documentation: 12/05/24 18:33 . HPI Narrative: Guille is a 54-year-old male presenting to the emergency dept for evaluation of dizziness accompanied by headache, nausea w decreased appetite, foggy headedness, and blurred vision. He began experiencing severe dizziness upon awakening on Friday morning, described as a sensation of being intoxicated. The dizziness is constant, intensifies with movement or head rotation. He also reports a persistent headache for several months, escalating in severity recently since the dizziness appeared, has described to his as the worst headache of my life. Ibuprofen provided temporary relief, but has only dulled the pain (taken today). His notes a recent episode of confusion (1 hour ago) while operating a tractor, leading to disorientation and a sensation of impending fall. He reports no slurred speech, facial droop, fever, extremity weakness/numbness, chest pain, shortness of breath, palpitations, vomiting, abdominal pain, changes in urination or bowel movements, diarrhea, unusual rashes, neck pain, or light sensitivity. He has noticed consistent blurring of vision since yesterday; says he normally has very clear vision at distance. No history of hypertension, HLD, diabetes, or recent head trauma. Currently on methimazole 2.5 mg daily for hyperthyroidism. Related Data Home Medications ?Medication ?Instructions ?Recorded ?Confirmed methimazole 5 mg tablet 2.5 mg PO .QOD 03/05/24 12/05/24 trazodone 50 mg tablet 50 mg PO QHS PRN sleep #90 tabs 03/05/24 12/05/24 Previous Rx's ?Medication ?Instructions ?Recorded trazodone 50 mg tablet 50 mg PO QHS PRN sleep #90 tabs 03/05/24 Allergies Allergy/AdvReac Type Severity Reaction Status Date / Time No Known Allergies Allergy Verified 12/05/24 18:32 General Stated Complaint: Dizzy/Sync JOSE LUIS: 3 Review of Systems Narrative: see HPI Exam Const General: cooperative, healthy appearing, no acute distress, well developed and well groomed Nutritional Appearance: average body habitus and well nourished Orientation: alert and oriented x3 HENMT Head: normal to inspection and atraumatic Ears: hearing grossly normal bilaterally General nose exam: external nose normal Face and sinus: normal facial exam Mouth: oral mucosae normal Teeth and gingiva: dentition normal Eyes Periorbital: periorbital findings normal Eyelids: eyelids normal Conjunctivae: conjunctivae normal Pupils: PERRL EOM: EOM intact bilaterally and nystagmus Neck Neck: normal visual inspection and full ROM Resp Effort & Inspection: normal respiratory effort and able to speak in complete sentences Auscultation: clear to auscultation bilaterally Cardio Jugular venous pressure: no JVD Rate: regular rate Rhythm: regular rhythm GI Inspection: normal to inspection Neuro General: patient alert, patient oriented x3, gait normal, tone normal, moves all extremities, no focal motor deficits and CN's II-XI intact bilaterally Cranial Nerves: CN's II-XI intact bilaterally, PERRL, EOM intact bilaterally, facial strength normal, able to elevate shoulders bilaterally and nystagmus Cognition: normal cognition Speech: speech normal Gait: normal gait Motor: muscle tone normal throughout and strength 5/5 throughout Sensory Exam: no sensory deficits noted Coordination: [id number] test normal and other (standing exam deferred due to significant dizziness with position change) Course Vital Signs Vital signs: Vital Signs Pulse 69 12/05/24 18:30 Respiratory Rate 18 12/05/24 18:30 Blood Pressure 171/94 H 12/05/24 18:30 Pulse Oximetry 98 12/05/24 18:30 Pulse 69 12/05/24 18:30 Respiratory Rate 16 12/05/24 18:48 Respiratory Effort Normal, Non-Labored 12/05/24 18:48 Respiratory Depth Normal 12/05/24 18:48 Respiratory Pattern Normal 12/05/24 18:48 Blood Pressure 171/94 H 12/05/24 18:30 Pulse Oximetry 98 12/05/24 18:30 Medical Decision Making Initial Assessment: 54-year-old male presenting with dizziness, headache, and confusion. Differential Diagnosis: - TIA/CVA: Persistent dizziness since Friday morning, worsens with movement and head turning, accompanied by nausea and blurry vision. Confusion episode approximately an hour ago while operating a tractor, feeling foggy since yesterday. No slurred speech, facial droop, or weakness. Initiate workup for TIA, including brain scan and vessel imaging. Arrange teleneurology consultation. - Cardiac arrhythmia -electrolyte imbalance -hypoglycemia -liver or kidney dysfunction ED Course: - Brain scan and vessel imaging ordered; no acute abnormalities noted, however a chronic right internal capsular lacunar infarction was noted. -Chest x-ray shows no acute abnormalities (confirmed by radiologist) EKG performed, normal sinus rhythm, rate 61. No changes consistent with acute ischemia, normal intervals. -I independently interpreted the following tests: CBC, CMP, BNP, PT/INR, aPTT, d-dimer, TSH, and serial troponins all reassuring. - Teleneurology consultation performed, discussed findings with Dr. Concepcion, who believes symptoms are due to an acute stroke. Recommend starting 324 mg aspirin x 1, followed by 81 mg daily. Inpatient evaluation with echo and MRI tomorrow, along with PT/OT evaluation. Clinical Impression: -CVA Disposition: - Admission: Patient admitted for further evaluation and management. MDM Components Evaluation: - Number of Differential Diagnoses or Management Options: TIA - Amount and Complexity of Data Reviewed: Brain scan, vessel imaging, teleneurology consultation, blood work - Risk of Complication and Morbidity or Mortality: High risk due to potential TIA and persistent symptoms. Quality:SDOH Health Related Social Needs: No Data to Display PFSH All Active Problems (Updated 12/05/24 @ 21:45 by Guille Kinsey) Depression (Chronic) TIA (transient ischemic attack) (Acute) Foot pain (Acute) ADD (attention deficit disorder) (Chronic) Hyperthyroidism (Chronic) Prediabetes (Acute) Low TSH level (Acute) Family history of diabetes mellitus (Acute) Impaired fasting glucose (Chronic) Unintended weight loss (Acute) Medical History Fatigue Right ureteral stone (03/07/16) Calculus of left kidney (11/19/16) Surgical History History of colonoscopy (~10/2021) History of cystoscopy H/O hand surgery 1998 RECONSTRUCTIVE LEFT HAND SURGERY Family History Father Diabetes Hypertension Social History Smoking/Tobacco Use Status: Never Second Hand Exposure: Yes Smoking risk assessment performed?: Yes Alcohol Intake: former Drug use: Never Substance use type: does not use Caregiver/Support person: No Household members: significant other Communication Needs: None Pets and animals: Yes Pets and animals: cat(s) Sexually active: Yes Do you think of yourself as: straight/heterosexual Current gender identity: male What is your relationship status?: living with partner How often do you talk on the phone with friends or family?: once per week Do you belong to any clubs or organized social groups?: yes Panel score (0-1 are the most socially isolated patients): 2 What type of physical activity do you participate in: none Roz/Restorationism: No preference Do you feel safe at home: Yes Do you feel safe in your relationship?: Yes
[2024-12-05] MEDS: Omnipaque 350 MG/ML 100 ML BTL IJ (19:21)
[2024-12-05] MEDS: Normal Saline - Diluent 50 ML VIAL IJ (19:22)
[2024-12-05 19:24] LABS: Abs Immature Grans 0.02 10^3/uL (0.0-0.06); Absolute Basophil Count 0.02 10^3/uL (0.0-0.2); Absolute Eosinophil Count 0.13 10^3/uL (0.0-0.7); Absolute Lymphocyte Count 2.33 10^3/uL (1.2-3.4); Absolute Monocyte Count 0.52 10^3/uL (0.1-0.8); Absolute Neutrophil Count 3.88 10^3/uL (1.2-6.7); Basophils % 0.3 %; Eosinophils % 1.9 %; HCT 45.8 % (40.0-50.0); HGB 14.9 g/dL (13.5-17.5); Immature Grans % 0.3 %; Lymphocytes % 33.8 %; MCH 27.8 pg (27.0-33.0); MCHC 32.5 % (32.0-36.0); MCV 85 fL (80-95); MPV 9.6 fL (8.0-11.0); Monocytes % 7.5 %; Neutrophils % 56.2 %; Platelet Count 267 10^3/uL (130-400); RBC 5.36 10^6/uL (4.36-5.78); RDW 13.3 % (11.8-14.1); RDW-SD 41.4 fL
[2024-12-05 19:36] LABS: INR 0.9 (0.9-1.1); PTT Activated 24.3 sec (20.6-30.2); Prothrombin Time 9.5 sec (9.1-11.1)
[2024-12-05 19:46] LABS: ALT 38 U/L (16-63); AST 14 U/L (15-37); Albumin 4.1 g/dL (3.4-5.0); Alkaline Phosphatase 59 U/L (46-116); Anion Gap 5.8 mmol/L (3-11); BUN 19 mg/dL (7-18); Bilirubin, Total 0.5 mg/dL (0.2-1.0); CO2 28.2 mmol/L (21.0-32.0); CREATININE 1.1 mg/dL (0.70-1.30); Calcium 8.7 mg/dL (8.5-10.1); Chloride 107 mmol/L (98-107); Estimated GFR 79.77 (mL/min/1.73m2); Glucose 116 mg/dL (74-106); Magnesium 1.9 mg/dL (1.8-2.4); Potassium 3.7 mmol/L (3.5-5.1); Sodium 141 mmol/L (136-145); TSH (W/Ref FT4) 2.57 uIU/mL (0.36-3.74); Total Protein 7.4 g/dL (6.4-8.2)
--- NOTE | 2024-12-05 19:51 | DI.[facility]_ITS ---
PROCEDURE INFORMATION: Exam: XR Chest Exam date and time: 12/05/2024 7:31 PM Age: 54 years old Clinical indication: Other: CVA workup; Additional info: Dizziness/ansari/nausea x 2 days, confusion 1 hr ago TECHNIQUE: Imaging protocol: Radiologic exam of the chest. Views: 2 views. COMPARISON: CT BRAIN NECK CTA 12/05/2024 7:06 PM FINDINGS: Lungs: Unremarkable. No consolidation. Pleural spaces: Unremarkable. No pleural effusion. No pneumothorax. Heart/Mediastinum: Unremarkable. No cardiomegaly. Bones/joints: Unremarkable. IMPRESSION: No acute findings. Dictated and Authenticated by: Jorge Noriega MD. Orderin Jessica Appiah MD
--- NOTE | 2024-12-05 19:54 | DI.VRAD_ITS ---
PROCEDURE INFORMATION: Exam: CTA Head Without And With Contrast, Arteriography Exam date and time: 12/05/2024 7:06 PM Age: 54 years old Clinical indication: Stroke-like symptoms; Altered mental status/memory loss and dizziness/giddiness and headache; Additional info: Dizziness/ansari/nausea x 2 days, confusion 1 hr ago TECHNIQUE: Imaging protocol: Computed tomographic angiography of the head without and with contrast. Exam focused on the arteries. 3D rendering (Not supervised by radiologist): MIP and/or 3D reconstructed images were created by the technologist. Contrast material: 350; Contrast volume: 70 ml; Contrast route: INTRAVENOUS (IV); Other technique: STROKE PROTOCOL was implemented. COMPARISON: No relevant prior studies available. FINDINGS: ANTERIOR CIRCULATION: Right internal carotid artery: Intracranial segment is patent with no significant stenosis or occlusion. No aneurysm. Right middle cerebral artery: No occlusion or significant stenosis. No aneurysm. Right anterior cerebral artery: No occlusion or significant stenosis. No aneurysm. Left internal carotid artery: Intracranial segment is patent with no significant stenosis. No aneurysm. Left middle cerebral artery: No occlusion or significant stenosis. No aneurysm. Left anterior cerebral artery: No occlusion or significant stenosis. No aneurysm. POSTERIOR CIRCULATION: Right vertebral artery: No occlusion or significant stenosis. No aneurysm. Left vertebral artery: No occlusion or significant stenosis. No aneurysm. Basilar artery: No occlusion or significant stenosis. No aneurysm. Right posterior cerebral artery: No occlusion or significant stenosis. No aneurysm. Left posterior cerebral artery: No occlusion or significant stenosis. No aneurysm. HEAD: Brain: Chronic right internal capsular lacunar infarction No hemorrhage. Unremarkable white matter. No mass effect. Cerebral ventricles: Normal. No ventriculomegaly. Bones: Unremarkable. No acute fracture. Paranasal sinuses: A polyp/retention cyst is noted in the right maxillary sinus.No fluid levels. Mastoid air cells: Visualized mastoids are normal. No mastoid effusion. Soft tissues: Unremarkable. IMPRESSION: 1. No large vessel occlusion. 2. Unremarkable CT head. ASSESSMENT: ASPECTS ([place] Stroke Program Early CT Score) is 10. PROCEDURE INFORMATION: Exam: CTA Neck Without And With Contrast Exam date and time: 12/05/2024 7:06 PM Age: 54 years old Clinical indication: Stroke-like symptoms; Altered mental status/memory loss and dizziness/giddiness and headache; Additional info: Dizziness/ansari/nausea x 2 days, confusion 1 hr ago TECHNIQUE: Imaging protocol: Computed tomographic angiography of the neck without and with contrast. Exam focused on the cervical segments of the vasculature. 3D rendering (Not supervised by radiologist): MIP and/or 3D reconstructed images were created by the technologist. Contrast material: 350; Contrast volume: 70 ml; Contrast route: INTRAVENOUS (IV); COMPARISON: No relevant prior studies available. FINDINGS: Right common carotid artery: No stenosis. No dissection or occlusion. Right internal carotid artery: No stenosis of the extracranial segment. No dissection or occlusion. Right external carotid artery: No occlusion or stenosis of the origin. Left common carotid artery: No stenosis. No dissection or occlusion. Left internal carotid artery: No stenosis of the extracranial segment. No dissection or occlusion. Left external carotid artery: No occlusion or stenosis of the origin. Right vertebral artery: No stenosis. No dissection or occlusion. Left vertebral artery: No stenosis. No dissection or occlusion. An independent origin to the left vertebral artery from the aortic arch is observed, a normal variant. Soft tissues: Multinodular goiter left greater than right with superior mediastinal extension and mass effect on the tracheoesophageal groove/upper thoracic esophagus No significant soft tissue swelling. Bones/joints: No acute fracture. IMPRESSION: No stenosis or occlusion. Multinodular thyroid with superior mediastinal extension on the left as noted REFERENCES: NASCET CRITERIA. The degree of stenosis in the cervical segment of the internal carotid artery is based on NASCET criteria. Normal is no stenosis. Mild is less than 50% stenosis. Moderate is 50-69% stenosis. Severe is 70% to 99% stenosis. Total occlusion is no detectable patent lumen. Dictated and Authenticated by: Jorge Noriega MD. Orderin Jessica Appiah MD
[2024-12-05 20:00] LABS: D-Dimer 190 ng/mlFEU (<500)
[2024-12-05 20:08] LABS: NT-proBNP 27 pg/mL (<300); Troponin I 6 ng/L (<or=76)
[2024-12-05] MEDS: Meclizine 25 MG TAB PO (20:40)
[2024-12-05] MEDS: Aspirin 81 MG CHEW 324 MG CH (20:40)
[2024-12-05 20:57] LABS: Troponin I 6 ng/L (<or=76)
[2024-12-05 21:01] LABS: Bilirubin Negative (Negative); Blood Negative (Negative); Clarity Clear (Clear); Glucose Negative (Negative); Ketones Trace mg/dL (Negative); Leukocyte Esterase Negative (Negative); Nitrite Negative (Negative); Specific Gravity 1.015 (1.005-1.025); Urobilinogen 0.2 mg/dL (Up to 0.2); pH 5.5 (5-8)
[2024-12-05 21:15] LABS: *AMPHETAMINES SCREEN URINE Negative (Negative); *BARBITURATES SCREEN URINE Negative (Negative); *BENZODIAZEPINES SCREEN URINE Negative (Negative); Cannabinoids THC Negative (Negative); Cocaine Screen,Urine Negative (Negative); METHADONE URINE SCREEN Negative (Negative); OPIATES URINE SCREEN Negative (Negative)
[2024-12-05 21:17] LABS: Tricyclic Antidepressants Negative (Negative)
--- NOTE | 2024-12-05 21:36 | W.PM.HP.N ---
Date of service: 12/05/24 Time of Service: 21:36 Assessment and Plan Assessment and plan (1) TIA (transient ischemic attack): Start date: 12/05/24 Status: Acute Assessment and plan: This is a 54-year-old gentleman who had transient symptoms sudden onset with vertiginous symptoms as well as associated headache and nausea. CTA of the head and neck were negative with teleneurology advising MRI with follow-up echocardiogram with bubble study, observation monitoring cardiac rhythm and full dose aspirin following up with daily low-dose aspirin. The patient has no history of previous CVA and teleneurology thought this may be consistent with a posterior CVA. They also recommended PT and OT for evaluation. Patient will be admitted for observation with above studies and evaluation and treatment. He will continue baby aspirin as an outpatient. He is a full code. (2) Hyperthyroidism: Status: Chronic Assessment and plan: Continue methimazole with TSH normal. (3) ADD (attention deficit disorder): Status: Chronic Assessment and plan: Not on treatment at this time, this may be increasing patient's stress with his job. (4) Depression: Status: Chronic Assessment and plan: On trazodone nightly which will be continued. 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 He also complained of blurred vision and he had brain fog with his stating that he was talking about doing some work with his tractor when he did not have the equipment he was discussing. His headache was over his left head from the front to the back and he has had similar headaches on the same side in the past. He did have associated nausea with his vertigo but also with a headache. He did tell his that his headache was worse headache that he has ever had. He had about 1 hour of confusion and was disoriented. This was when he was discussing his tractor. In the ED he was given meclizine for his dizziness which was helpful and he was treated for his headache with relief. He denies any nausea at the time I saw him and most of the above history was given by his with the patient still slightly withdrawn and appearing fatigued. He did have a sensation that he may fall when he was having his vertiginous dizziness. He reported to the ED for evaluation and CTA of the head and neck was unrevealing for an acute stroke or occlusion with teleneurology recommending observation with full dose aspirin given and then once a day low-dose aspirin, echocardiogram, PT/OT and MRI. He was given meclizine for his dizziness and Tylenol for his headache. The patient did not have persistent nausea. The patient is a full code. Review of Systems Narrative: 13 point review of systems otherwise unrevealing or stable. PFSH All Active Problems Acute CVA (cerebrovascular accident) (Acute) Depression (Chronic) TIA (transient ischemic attack) (Acute) Foot pain (Acute) ADD (attention deficit disorder) (Chronic) Hyperthyroidism (Chronic) Prediabetes (Acute) Low TSH level (Acute) Family history of diabetes mellitus (Acute) Impaired fasting glucose (Chronic) Unintended weight loss (Acute) Medical History Fatigue Right ureteral stone (03/07/16) Calculus of left kidney (11/19/16) Surgical History History of colonoscopy (~10/2021) History of cystoscopy H/O hand surgery 1998 RECONSTRUCTIVE LEFT HAND SURGERY Family History Father Diabetes Hypertension Social History Smoking/Tobacco Use Status: Never Second Hand Exposure: Yes Smoking risk assessment performed?: Yes Alcohol Intake: former Drug use: Never Substance use type: does not use Caregiver/Support person: No Household members: significant other Housing: house Communication Needs: None Pets and animals: Yes Pets and animals: cat(s) Sexually active: Yes Do you think of yourself as: straight/heterosexual Current gender identity: male What is your relationship status?: living with partner How often do you talk on the phone with friends or family?: once per week Do you belong to any clubs or organized social groups?: yes Panel score (0-1 are the most socially isolated patients): 2 What type of physical activity do you participate in: none Roz/Evangelical: No preference Do you feel safe at home: Yes Do you feel safe in your relationship?: Yes Meds Allergies and Home Medications Allergies Allergy/AdvReac Type Severity Reaction Status Date / Time No Known Allergies Allergy Verified 12/05/24 18:32 Home Medications ?Medication ?Instructions ?Recorded ?Confirmed ?Type methimazole 5 mg tablet 2.5 mg PO .QOD 03/05/24 12/05/24 History trazodone 50 mg tablet 50 mg PO QHS PRN sleep #90 tabs 03/05/24 12/05/24 Rx Exam Narrative Exam Narrative: General: Patient is appropriate for age, flattened affect with poor eye contact, alert and oriented to person, place and time. He does have slowed speech and monotonous tone. He is in no acute distress. HEENT: Normocephalic, eyes with pupils equal and react to light symmetrically, extraocular movement intact and sclera anicteric. No nystagmus. Oropharynx mucosa moist with fair dentition. Neck: Supple without JVD and no auscultated bruits. Back: Normal posture without CVA tenderness. Lungs: Clear to auscultation percussion with no focalizing rales or rhonchi. No expiratory wheeze. Heart: Regular rate and rhythm with no murmurs gallops cruciated. Abdomen: Obese contour, soft nontender to palpation with no palpable hepatosplenomegaly. Bowel sounds positive in all quadrants. Genitalia/rectal: Exam deferred. Skin: Normal color, warm and dry. Extremities: Without clubbing, cyanosis or pitting edema. Peripheral pulses intact. Neuro: Cranial nerves II through XII grossly intact with no nystagmus noted. No focalizing motor deficits. No tremor. No Babinski's. DTRs are physiologic and symmetrical. Psych: Flattened affect with depressed mood. No abnormal thought processes. Remote and recent memory appear to be grossly intact. Results Imaging Imaging Studies: Exam: XR Chest Exam date and time: 12/05/2024 7:31 PM Age: 54 years old Clinical indication: Other: CVA workup; Additional info: Dizziness/ansari/nausea x 2 days, confusion 1 hr ago TECHNIQUE: Imaging protocol: Radiologic exam of the chest. Views: 2 views. COMPARISON: CT BRAIN NECK CTA 12/05/2024 7:06 PM FINDINGS: Lungs: Unremarkable. No consolidation. Pleural spaces: Unremarkable. No pleural effusion. No pneumothorax. Heart/Mediastinum: Unremarkable. No cardiomegaly. Bones/joints: Unremarkable. IMPRESSION: No acute findings. Exam: CTA Head Without And With Contrast, Arteriography Exam date and time: 12/05/2024 7:06 PM Age: 54 years old Clinical indication: Stroke-like symptoms; Altered mental status/memory loss and dizziness/giddiness and headache; Additional info: Dizziness/ansari/nausea x 2 days, confusion 1 hr ago . COMPARISON: No relevant prior studies available. FINDINGS: ANTERIOR CIRCULATION: Right internal carotid artery: Intracranial segment is patent with no significant stenosis or occlusion. No aneurysm. Right middle cerebral artery: No occlusion or significant stenosis. No aneurysm. Right anterior cerebral artery: No occlusion or significant stenosis. No aneurysm. Left internal carotid artery: Intracranial segment is patent with no significant stenosis. No aneurysm. Left middle cerebral artery: No occlusion or significant stenosis. No aneurysm. Left anterior cerebral artery: No occlusion or significant stenosis. No aneurysm. POSTERIOR CIRCULATION: Right vertebral artery: No occlusion or significant stenosis. No aneurysm. Left vertebral artery: No occlusion or significant stenosis. No aneurysm. Basilar artery: No occlusion or significant stenosis. No aneurysm. Right posterior cerebral artery: No occlusion or significant stenosis. No aneurysm. Left posterior cerebral artery: No occlusion or significant stenosis. No aneurysm. HEAD: Brain: Chronic right internal capsular lacunar infarction No hemorrhage. Unremarkable white matter. No mass effect. Cerebral ventricles: Normal. No ventriculomegaly. Bones: Unremarkable. No acute fracture. Paranasal sinuses: A polyp/retention cyst is noted in the right maxillary sinus.No fluid levels. Mastoid air cells: Visualized mastoids are normal. No mastoid effusion. Soft tissues: Unremarkable. IMPRESSION: 1. No large vessel occlusion. 2. Unremarkable CT head. ASSESSMENT: ASPECTS ([place] Stroke Program Early CT Score) is 10. PROCEDURE INFORMATION: Exam: CTA Neck Without And With Contrast Exam date and time: 12/05/2024 7:06 PM Age: 54 years old Clinical indication: Stroke-like symptoms; Altered mental status/memory loss and dizziness/giddiness and headache; Additional info: Dizziness/ansari/nausea x 2 days, confusion 1 hr ago COMPARISON: No relevant prior studies available. FINDINGS: Right common carotid artery: No stenosis. No dissection or occlusion. Right internal carotid artery: No stenosis of the extracranial segment. No dissection or occlusion. Right external carotid artery: No occlusion or stenosis of the origin. Left common carotid artery: No stenosis. No dissection or occlusion. Left internal carotid artery: No stenosis of the extracranial segment. No dissection or occlusion. Left external carotid artery: No occlusion or stenosis of the origin. Right vertebral artery: No stenosis. No dissection or occlusion. Left vertebral artery: No stenosis. No dissection or occlusion. An independent origin to the left vertebral artery from the aortic arch is observed, a normal variant. Soft tissues: Multinodular goiter left greater than right with superior mediastinal extension and mass effect on the tracheoesophageal groove/upper thoracic esophagus No significant soft tissue swelling. Bones/joints: No acute fracture. IMPRESSION: No stenosis or occlusion. Multinodular thyroid with superior mediastinal extension on the left as noted Labs 12/06/24 06:19 12/06/24 06:19 Labs: Laboratory Results - last 24 hr 12/05/24 12/05/24 12/05/24 19:12 20:10 20:46 WBC 6.90 RBC 5.36 Hgb 14.9 Hct 45.8 MCV 85 MCH 27.8 MCHC 32.5 RDW 13.3 Plt Count 267 MPV 9.6 Immature Gran % 0.3 Neutrophils % 56.2 Lymphocytes % 33.8 Monocytes % 7.5 Eosinophils % 1.9 Basophils % 0.3 Nucleated RBC % 0.0 Absolute Neutrophils 3.88 Absolute Lymphocytes 2.33 Absolute Monocytes 0.52 Absolute Eosinophils 0.13 Absolute Basophils 0.02 PT 9.5 INR 0.9 APTT 24.3 D-Dimer 190 Sodium 141 Potassium 3.7 Chloride 107 Carbon Dioxide 28.2 Anion Gap 5.8 BUN 19 H Creatinine 1.1 Est GFR (CKD-EPI 2020) 79.77 Glucose 116 H Calcium 8.7 Magnesium 1.9 Total Bilirubin 0.5 AST 14 L ALT 38 Alkaline Phosphatase 59 Troponin I 6 6 NT-Pro-B Natriuret Pep 27 Total Protein 7.4 Albumin 4.1 TSH 2.57 Urine Color Yellow Urine Clarity Clear Urine pH 5.5 Ur Specific [place] 1.015 Urine Protein Trace Urine Ketones Trace H Urine Blood Negative Urine Nitrite Negative Urine Bilirubin Negative Urine Urobilinogen 0.2 Ur Leukocyte Esterase Negative Urine Glucose Negative Urine Opiates Screen Negative Urine Methadone Screen Negative Ur Barbiturates Screen Negative Ur Tricyclics Screen Negative Ur Amphetamines Screen Negative U Benzodiazepines Scrn Negative Urine Cocaine Screen Negative Ur THC Screen Negative Last Vital Signs Temp 35.9 C L 12/05/24 18:30 Pulse 57 L 12/05/24 20:41 Resp 20 12/05/24 20:41 BP 135/78 12/05/24 20:41 Pulse Ox 96 12/05/24 20:41 Time Spent Time spent with Patient: 55-74 minutes Time was spent: preparing to see the patient(eg.review tests), obtaining and/or reviewing separately otained hiistory, ordering medications,tests, procedures, indepentently interpreting results and care coordination
[2024-12-05 22:33] LABS: Troponin I 6 ng/L (<or=76)
--- NOTE | 2024-12-05 23:03 | W.PC.ACHO ---
Registration Status: Primary Language: Preferred Language: ED Information & Data Chief Complaint Dizzy/Sync 12/05/24 19:22 Triage Note Patient complaining of dizzy 12/05/24 18:30 , headache and blurred vision for 2 days Medical / Surgical History (Last Reviewed 12/05/24 @ 21:36 by Guille Kinsey) Fatigue Right ureteral stone (03/07/16) Calculus of left kidney (11/19/16) (Last Reviewed 12/05/24 @ 21:36 by Guille Kinsey) History of colonoscopy (~10/2021) History of cystoscopy H/O hand surgery Most Recent Vital Signs Temperature 35.9 C L 12/05/24 18:30 Pulse 56 L 12/05/24 22:40 Pulse 65 12/05/24 22:50 Respiratory Rate 16 12/05/24 22:50 Respiratory Effort Normal, Non-Labored 12/05/24 18:48 Respiratory Depth Normal 12/05/24 18:48 Respiratory Pattern Normal 12/05/24 18:48 Blood Pressure 145/84 H 12/05/24 22:31 Blood Pressure Mean 105 12/05/24 22:31 Pulse Oximetry 96 12/05/24 22:40 Allergies No Known Allergies Allergy (Verified 12/05/24 18:32) Precautions Isolation Standard precaution 12/05/24 18:32 Active Medications Generic Name Dose Route Start Last Admin Trade Name Herbieq PRN Reason Stop Dose Admin Iohexol 100 ml 12/05/24 19:30 12/05/24 19:21 Omnipaque 350 Mg/Ml 100 Ml Btl IJ 01/04/25 23:59 100 ml DIRECTED ULYSSES Administration Sodium Chloride 50 ml 12/05/24 19:30 12/05/24 19:22 Normal Saline - Diluent 50 Ml Vial IJ 50 ml .FOR DI USE ULYSSES Administration IV IV Catheter Type [Right Peripheral IV Antecubital] IV Catheter Gauge [Right 18 Antecubital] Diagnostics 12/05/24 12/05/24 12/05/24 Range/Units 22:10 20:46 20:10 WBC (4.4-10.8) 10^3/uL RBC (4.36-5.78) 10^6/uL Hgb (13.5-17.5) g/dL Hct (40.0-50.0) % MCV (80-95) fL MCH (27.0-33.0) pg MCHC (32.0-36.0) % RDW (11.8-14.1) % Plt Count (130-400) 10^3/uL MPV (8.0-11.0) fL Immature Gran % % Neutrophils % % Lymphocytes % % Monocytes % % Eosinophils % % Basophils % % Nucleated RBC % (0.0-0.3) % Absolute Neutrophils (1.2-6.7) 10^3/uL Absolute Lymphocytes (1.2-3.4) 10^3/uL Absolute Monocytes (0.1-0.8) 10^3/uL Absolute Eosinophils (0.0-0.7) 10^3/uL Absolute Basophils (0.0-0.2) 10^3/uL PT (9.1-11.1) sec INR (0.9-1.1) APTT (20.6-30.2) sec D-Dimer (<500) ng/mlFEU Sodium (136-145) mmol/L Potassium (3.5-5.1) mmol/L Chloride (98-107) mmol/L Carbon Dioxide (21.0-32.0) mmol/L Anion Gap (3-11) mmol/L BUN (7-18) mg/dL Creatinine (0.70-1.30) mg/dL Est GFR (CKD-EPI 2020) (mL/min/1.73m2) Glucose (74-106) mg/dL Calcium (8.5-10.1) mg/dL Magnesium (1.8-2.4) mg/dL Total Bilirubin (0.2-1.0) mg/dL AST (15-37) U/L ALT (16-63) U/L Alkaline Phosphatase (46-116) U/L Troponin I 6 6 (<or=76) ng/L NT-Pro-B Natriuret Pep (<300) pg/mL Total Protein (6.4-8.2) g/dL Albumin (3.4-5.0) g/dL TSH (0.36-3.74) uIU/mL Urine Color Yellow (Yellow) Urine Clarity Clear (Clear) Urine pH 5.5 (5-8) Ur Specific [place] 1.015 (1.005-1.025) Urine Protein Trace (Neg-Trace) mg/dL Urine Ketones Trace H (Negative) mg/dL Urine Blood Negative (Negative) Urine Nitrite Negative (Negative) Urine Bilirubin Negative (Negative) Urine Urobilinogen 0.2 (Up to 0.2) mg/dL Ur Leukocyte Esterase Negative (Negative) Urine Glucose Negative (Negative) mg/dL Urine Opiates Screen Negative (Negative) Urine Methadone Screen Negative (Negative) Ur Barbiturates Screen Negative (Negative) Ur Tricyclics Screen Negative (Negative) Ur Amphetamines Screen Negative (Negative) U Benzodiazepines Scrn Negative (Negative) Urine Cocaine Screen Negative (Negative) Ur THC Screen Negative (Negative) COVID-19 Source SARS-CoV-2 (PCR) Influenza Type A (PCR) Influenza Type B (PCR) RSV (PCR) 12/05/24 12/05/24 Range/Units 19:12 18:40 WBC 6.90 (4.4-10.8) 10^3/uL RBC 5.36 (4.36-5.78) 10^6/uL Hgb 14.9 (13.5-17.5) g/dL Hct 45.8 (40.0-50.0) % MCV 85 (80-95) fL MCH 27.8 (27.0-33.0) pg MCHC 32.5 (32.0-36.0) % RDW 13.3 (11.8-14.1) % Plt Count 267 (130-400) 10^3/uL MPV 9.6 (8.0-11.0) fL Immature Gran % 0.3 % Neutrophils % 56.2 % Lymphocytes % 33.8 % Monocytes % 7.5 % Eosinophils % 1.9 % Basophils % 0.3 % Nucleated RBC % 0.0 (0.0-0.3) % Absolute Neutrophils 3.88 (1.2-6.7) 10^3/uL Absolute Lymphocytes 2.33 (1.2-3.4) 10^3/uL Absolute Monocytes 0.52 (0.1-0.8) 10^3/uL Absolute Eosinophils 0.13 (0.0-0.7) 10^3/uL Absolute Basophils 0.02 (0.0-0.2) 10^3/uL PT 9.5 (9.1-11.1) sec INR 0.9 (0.9-1.1) APTT 24.3 (20.6-30.2) sec D-Dimer 190 (<500) ng/mlFEU Sodium 141 (136-145) mmol/L Potassium 3.7 (3.5-5.1) mmol/L Chloride 107 (98-107) mmol/L Carbon Dioxide 28.2 (21.0-32.0) mmol/L Anion Gap 5.8 (3-11) mmol/L BUN 19 H (7-18) mg/dL Creatinine 1.1 (0.70-1.30) mg/dL Est GFR (CKD-EPI 2020) 79.77 (mL/min/1.73m2) Glucose 116 H (74-106) mg/dL Calcium 8.7 (8.5-10.1) mg/dL Magnesium 1.9 (1.8-2.4) mg/dL Total Bilirubin 0.5 (0.2-1.0) mg/dL AST 14 L (15-37) U/L ALT 38 (16-63) U/L Alkaline Phosphatase 59 (46-116) U/L Troponin I 6 (<or=76) ng/L NT-Pro-B Natriuret Pep 27 (<300) pg/mL Total Protein 7.4 (6.4-8.2) g/dL Albumin 4.1 (3.4-5.0) g/dL TSH 2.57 (0.36-3.74) uIU/mL Urine Color (Yellow) Urine Clarity (Clear) Urine pH (5-8) Ur Specific [place] (1.005-1.025) Urine Protein (Neg-Trace) mg/dL Urine Ketones (Negative) mg/dL Urine Blood (Negative) Urine Nitrite (Negative) Urine Bilirubin (Negative) Urine Urobilinogen (Up to 0.2) mg/dL Ur Leukocyte Esterase (Negative) Urine Glucose (Negative) mg/dL Urine Opiates Screen (Negative) Urine Methadone Screen (Negative) Ur Barbiturates Screen (Negative) Ur Tricyclics Screen (Negative) Ur Amphetamines Screen (Negative) U Benzodiazepines Scrn (Negative) Urine Cocaine Screen (Negative) Ur THC Screen (Negative) COVID-19 Source Pending SARS-CoV-2 (PCR) Pending Influenza Type A (PCR) Pending Influenza Type B (PCR) Pending RSV (PCR) Pending [id number] Documentation Fingerstick Glucose Start: 12/05/24 18:34 Freq: .Stat Status: Active Protocol: Activity Type Activity Date Activity User E-sign Co-sign Detail Recorded Client Recorded Date Recorded By Document 12/05/24 18:46 BKG DAEMON(5) [id number] 12/05/24 18:47 BKG DAEMON(6) Intake and Output - 24 Hour Total 12/05/24 18:28 thru 12/05/24 18:30 Weight 122.47 kg Falls Risk Assessment History of Falls No History 12/05/24 18:37 Contributing Factors No Factors 12/05/24 18:37 Ambulatory Aids Independent 12/05/24 18:37 Tubes/Lines None 12/05/24 18:37 Gait Evaluation No gait disturbance 12/05/24 18:37 Cognition No cognitive impairment 12/05/24 18:37 Fall Total Score 0 12/05/24 18:37 Level of Risk Standard/Low Risk 12/05/24 18:37 Problems (Last Reviewed 12/05/24 @ 21:36 by Guille Kinsey) Depression (Chronic) TIA (transient ischemic attack) (Acute) ADD (attention deficit disorder) (Chronic) Hyperthyroidism (Chronic) v v v v v v v v v Sending and/or Receiving Nurses: Please use comment section below to note any information pertinent to the patient hand-off not included above. Information / Comments: Dizzy spells x2 days, CT scan/Tele neuro neg, Trops neg, admit obvs for MRI and ECHO in the morning. Meclizine and baby aspirin given in ED. A&Ox3, ind at baseline. Report received from: Dion Rodriguez, PM
[2024-12-06] MEDS: Enoxaparin 40 MG/0.4 ML SYR SC ×2 (00:08→20:10)
[2024-12-06] MEDS: Acetaminophen 325 MG TAB PO (00:08)
[2024-12-06] MEDS: Normal Saline Flush 10 ML SYR IVP ×4 (00:08→17:24)
[2024-12-06] MEDS: Atorvastatin 40 MG TAB PO ×2 (00:09→20:10)
[2024-12-06] MEDS: traZODone 50 MG TAB PO (00:09)
[2024-12-06 00:46] LABS: COVID-19 PCR Negative (Negative); Influenza A PCR Negative (Negative); Influenza B PCR Negative (Negative); RSV PCR Negative (Negative)
[2024-12-06 00:52] LABS: Source Nasopharynx
[2024-12-06 03:29] VITALS: BP 117/79; PULSE 56; RESP 18; TEMP 36.5; O2SAT 96
[2024-12-06] MEDS: Meclizine 25 MG TAB PO ×4 (03:56→20:36)
[2024-12-06] MEDS: ACETAMINOPHEN 1,000 MG/100 ML BTL 400 MG IVPB (03:56)
[2024-12-06 06:37] LABS: HCT 41.8 % (40.0-50.0); HGB 14.3 g/dL (13.5-17.5); MCH 28.8 pg (27.0-33.0); MCHC 34.2 % (32.0-36.0); MCV 84 fL (80-95); MPV 9.6 fL (8.0-11.0); Platelet Count 234 10^3/uL (130-400); RBC 4.97 10^6/uL (4.36-5.78); RDW 13.3 % (11.8-14.1); RDW-SD 40.8 fL; WBC 5.38 10^3/uL (4.4-10.8)
[2024-12-06 06:56] LABS: ALT 33 U/L (16-63); AST 13 U/L (15-37); Albumin 3.5 g/dL (3.4-5.0); Alkaline Phosphatase 47 U/L (46-116); Anion Gap 5.8 mmol/L (3-11); BUN 19 mg/dL (7-18); Bilirubin, Total 0.6 mg/dL (0.2-1.0); CO2 26.2 mmol/L (21.0-32.0); CREATININE 0.8 mg/dL (0.70-1.30); Calcium 8.5 mg/dL (8.5-10.1); Chloride 108 mmol/L (98-107); Estimated GFR 105.17 (mL/min/1.73m2); Glucose 116 mg/dL (74-106); Magnesium 1.9 mg/dL (1.8-2.4); Potassium 3.7 mmol/L (3.5-5.1); Sodium 140 mmol/L (136-145); Total Protein 6.5 g/dL (6.4-8.2)
[2024-12-06 07:38] VITALS: BP 117/84; PULSE 65; RESP 18; TEMP 36.5; O2SAT 97
--- NOTE | 2024-12-06 08:00 | DI.MRI_ITS ---
Exam(s) MR BRAIN WO EXAM: MR BRAIN WO CLINICAL HISTORY: TIA TECHNIQUE: Multiplanar multisequence MRI of the brain was performed. COMPARISON: CT CT BRAIN NECK CTA from 12/05/2024 FINDINGS: VENTRICLES AND EXTRA AXIAL SPACES: Normal in size and morphology for the patient's age. MIDLINE SHIFT: None. CEREBRAL PARENCHYMA: No focus of restricted diffusion to suggest acute infarct. No space-occupying le corrine identified. There is an old lacunar infarct on the right in the anterior limb of the internal ca psule. HEMORRHAGE: None. BRAINSTEM/CEREBELLUM: Normal. CALVARIUM: Normal. VISUALIZED PARANASAL SINUSES/MASTOIDS:Mucous retention cysts in the maxillary sinuses bilaterally. T he remaining visualized paranasal sinuses are clear. KOBUK OF PEREA: Normal flow void. PITUITARY GLAND: Unremarkable. OTHER FINDINGS: None. IMPRESSION: No evidence of an acute infarct. DATA REPOSITORY:
[2024-12-06] MEDS: Aspirin 81 MG CHEW PO (09:46)
[2024-12-06] MEDS: LORazepam 1 MG TAB PO ×2 (10:02→20:10)
[2024-12-06 13:49] VITALS: BP 112/78; PULSE 60; O2SAT 95
--- NOTE | 2024-12-06 15:18 | PT.INIE ---
PT Notes Visit Reasons: TIA (cardiology) Physical Therapy Inpatient Initial Evaluation Date: 12/06/2024 Referring Doctor: Dr Kinsey PT Orders: PT CONSULT: PT Evaluation D?C non PT Dependent Precautions: Fall Risk Patient Profile/Admitting Diagnosis: Pt is a 54 yo male presented to the ED with decreased appetite, fogginess, confusion and blurred vision. On Day pror to admission pt woke with severe dizziness. Brain scan in ED revealed attenuation in right internal capsule possible lacunar infarct and Thyroid nodules. Teleneuro recommended MRI and ECHO. Pt admitted to med Surg unit for medical workup. MRI revealed There is an old lacunar infarct on the right in the anterior limb of the internal capsule. No acute findings. ECHO : no abnormal findings. PMHX: Acute CVA (cerebrovascular accident) (Acute) Depression (Chronic) TIA (transient ischemic attack) (Acute) Foot pain (Acute) ADD (attention deficit disorder) (Chronic) Hyperthyroidism (Chronic) Prediabetes (Acute) Low TSH level (Acute) Family history of diabetes mellitus (Acute) Impaired fasting glucose (Chronic) Unintended weight loss (Acute) Medical History Fatigue Right ureteral stone (03/07/16) Calculus of left kidney (11/19/16) Surgical History History of colonoscopy (~10/2021) History of cystoscopy H/O hand surgery 1998 RECONSTRUCTIVE LEFT HAND SURGERY Social History/Home Situation: Pt resides with in single level home with 3 REID with rail. Pt independent with all aspects of care. 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 Pt active. Equipment Owned/DME: none Subjective: Pt reports he feels much better than he did over the weekend but he still has blurred vision and dizziness with head rotation. Objective: [] General Observation: male sidelying in bed with present. Mental Status: A+O x 4, pleasant, cooperative, able to follow multistep instructions. Agreeable to participate. Pain: denies ROM: [] BUE: WNL BLE : WNL Strength: [] Right Upper Extremity: grossly 5/5 strong bingo attendant Left Upper Extremity: grossly 5/5 strong bingo attendant Right Lower Extremity: grossly 5/5 Left Lower Extremity: Hip flexion: 4- /5; hip abduction: 3+ /5; hip extension: 4- /5; knee extension: 4 /5; knee flexion: 4 /5 ankle DF: 4/5 ; ankle PF: 4 /5 Sensation: intact Coordination: BUE ALISA with increased speed decreased accuracy and sequencing of clap/slap; decreased accuracy with finger to nose ( Pt has double vision at this time); BLE decreased speed and accuracy with ALISA L>R, decreased accuracy with heel to boateng on Left Bed Mobility/Transfers: Supine to sit independent Sit to stand independent Stand to sit independent Bed to chair SBA Gait: CGA 40 feet without AD wide RIAZ impaired step length. increased lateral weight shift including turns Balance: [] Static Sitting: Normal Dynamic Sitting: Good Static Standing: Good with wide RIAZ Dynamic Standing: Fair Special Tests: 4 STAGE BALANCE TEST: Feet together _30_ seconds 1/2 Stance ____30___ seconds Tandem stance __12__seconds with right foot back Single leg stance left__4__seconds, right__12__seconds Mobility Limitations Standardized Measure [] [facility] 6 clicks Basic Mobility Inpatient Short Form: [] Raw Score: 22 CMS Score: 20.91% Informed Consent/Education: Patient instructed in purpose of PT consult. Assessment: Pt is 54 yo male presenting with nystagmus with head rotation, blurred vision which resolves with closing right eye., dizziness with head rotation B directions. unsteady gait with wide RIAZ. Assistive device did not improve gait stability. Patient presents with clinical signs and symptoms consistent with current/admitting diagnoses that have resulted to mobility limitations, gait instability, generalized weakness, and impairment of motor control as demonstrated by the following impairment level findings: 1. Decreased strength to left LE major muscle groups 2. Impaired standing balance 3. dizziness 4. impaired standing activity tolerance 5. impaired vision Impairments are contributing to the following functional limitations: 1. Inability to safely ambulate without assistive device 2. Increase completion time for mobility ADL performance 3. Increased fall risk 4. Difficulty performing stairs without assistance. Patient is assessed as a moderate complexity based on the following: History: 54-year-old male with impairment level findings, functional limitations, and past medical history as indicated above Examination: Demonstrable impairment in strength, balance, and mobility level with underlying impairments and functional limitations as documented above Presentation: Evolving Decision Making: moderate Goals: 1. Independent ambulation 300 feet without s/s of dizziness 2. SBA 3 steps with rail to safely enter and exit home. Plan of Care/Treatment Plan: 1-2x/day, 7 days/week x 1 week. Plan of care has been reviewed with the CHUCKING LATHE OPERATOR providing the service under Physical Therapy direction. Initiate Physical Therapy intervention for strengthening, transfers, gait, stairs, balance training, use of assistive device as appropriate. DISCHARGE RECOMMENDATIONS: Home with Outpatient PT - for balance strengthening and further vestibular assessment TREATMENT CODE/TIME:44546,[id number]/ [id number] Thank you for the opportunity to participate in the care of this patient. Lela Crane PT [facility]
[2024-12-06] MEDS: methIMAzole 5 MG TAB 2.5 MG PO (15:20)
--- NOTE | 2024-12-06 15:25 | PDOC.CMIN ---
Date of service: 12/06/24 Time of Service: 15:25 Care Management Initial Assmt Initial Assessment Reason for Hospitalization: TIA Functional Status/Living Situation Patient Presentation: [place] was sitting at the edge of his bed and visiting with his partner Rola, when CM arrived. [place] presented to the ED for evaluation of dizziness accompanied by headache, nausea with decreased appetite, foggy headedness, and blurred vision. Per [place], Rola is a good support for him. [place] states that he is hopeful to go home soon and does not want to stay the night. [place] denies needing anything at this time. Town of Residence: [place] Resides with: Spouse (Rola) Significant Other/Family: Out of area (2 adult stepsons in [place]) Natural Supports: Fredahlia Employment Status: Employed ([employer] [address] [employer] ) Instrumental Activities of Daily Living (ADLs): Independent Medications Medication Management: No Issues/Barriers identified Physical Functioning/Mobility Assistive Device: None identified Advance Directives Advance Directives: Do you have an Advance Directive: N 10/26/21 10:30 AD On File at [facility]: N 10/26/21 10:30 Date Asked 12/05/24 12/05/24 18:39 AD Date Reviewed COLST On File at [facility] COLST Date Scanned Code Status Resuscitation Status Full Code Portal Pt does not currently have a portal and education provided: Yes Insurance Coverage/Financial Issues Insurance: /[facility]? Financial Issues: None identified Care Team Visit Care Team Role Provider Type Itzel Boyle APRN MD [facility] STAFF PHYSICIAN Franck Ivey, [place] Primary Care Provider NURSE PRACTITIONER Elle العلي Other Providers REG OCCUPATIONAL THERAPIST [facility] Other Providers OTHER Bijal Weinstein Emergency Provider NURSE PRACTITIONER Guille Kinsey Admit Provider NON-[facility] STAFF PHYSICIAN Attending Provider Discharge Potential Discharge Needs: PCP F/U Appt Anticipated Barriers to Discharge: None Identified Patient/Family Education Needs: Review discharge instructions, discuss Ask Me Three Transportation: Private vehicle ([employer] Plan: Anticipate [place] will be discharged home with no new services. He will follow up with his community providers and plan of care. He will transport via private vehicle by [employer] Social Determinants of Health Screening Social Determinants of health last assessed in clinic: 12/06/24 Will the Patient Participate in the Screening?: Yes Do you worry about having a steady place to live?: yes What is your living situation today?: I do not have steady housing (This is inaccurate, will not let me unselect 12/06/24 ) Problems where you live: no known problems In the past 12 months, have you had to go without electric, gas, oil or water in your home?: no 1. Within the past 12 months, we worried whether our food would run out before we got money to buy more.: Never true 2. Within the past 12 months, the food we bought just didn't last and we didn't have money to get more.: Never true Has lack of transportation kept you from medical appointments or from doing things needed for daily living?: no Has anyone in your life made you feel unsafe or unsupported?: no How hard is it for you to pay for the very basics like food, housing, medical care, and heating? Would you say it is:: Not hard at all Do you want help finding or keeping work or a job?: I do not need or want help If for any reason you need help with day-to-day activities such as bathing, preparing meals, shopping, managing finances, etc., do you get the help you need?: I don?t need any help How often do you feel lonely or isolated from those around you?: Never Do you speak a language other than Citizen Of [place] at home?: No Does the patient want assistance with any of the above?: No PFSH All Active Problems (Updated 12/06/24 @ 15:33 by Franck Ivey NP) Multinodular thyroid (Acute) Acute CVA (cerebrovascular accident) (Acute) Depression (Chronic) TIA (transient ischemic attack) (Acute) Foot pain (Acute) ADD (attention deficit disorder) (Chronic) Hyperthyroidism (Chronic) Prediabetes (Acute) Low TSH level (Acute) Family history of diabetes mellitus (Acute) Impaired fasting glucose (Chronic) Unintended weight loss (Acute) Medical History Fatigue Right ureteral stone (03/07/16) Calculus of left kidney (11/19/16) Surgical History History of colonoscopy (~10/2021) History of cystoscopy H/O hand surgery 1998 RECONSTRUCTIVE LEFT HAND SURGERY Family History Father Diabetes Hypertension Social History Smoking/Tobacco Use Status: Never Second Hand Exposure: Yes Smoking risk assessment performed?: Yes Alcohol Intake: former Drug use: Never Substance use type: does not use Caregiver/Support person: No Household members: significant other Housing: house Communication Needs: None Pets and animals: Yes Pets and animals: cat(s) Sexually active: Yes Do you think of yourself as: straight/heterosexual Current gender identity: male What is your relationship status?: living with partner How often do you talk on the phone with friends or family?: once per week Do you belong to any clubs or organized social groups?: yes Panel score (0-1 are the most socially isolated patients): 2 What type of physical activity do you participate in: none Roz/Shinto: No preference Do you feel safe at home: Yes Do you feel safe in your relationship?: Yes Readmission Within the Past 30 Days Yes or No: No
[2024-12-06 15:58] VITALS: BP 121/95; PULSE 58; RESP 18; TEMP 36.7; O2SAT 95
[2024-12-06] MEDS: Sodium Chloride-Nasal SPRAY-ADULT 44 ML BTL NS (17:21)
--- NOTE | 2024-12-06 17:27 | W.PM.PROGNOT ---
Date of Service Date of service: 12/06/24 Time of Service: 17:27 Assessment and Plan Assessment and plan (1) TIA (transient ischemic attack): Start date: 12/05/24 Status: Acute Assessment and plan: This is a 54-year-old gentleman who had transient symptoms sudden onset with vertiginous symptoms as well as associated headache and nausea. Reporting having had previous similar symptoms today CTA/CT of the head and neck were negative MRI negative for acute infarct - old right lacunar infarct comfirm Echocardiogram with bubble study- report pending Ongoing monitoringof cardiac rhythm ASA 81 mg Statin Ongoing PT to be further evaluated in AM (2) Hyperthyroidism: Status: Chronic Assessment and plan: On home dose methimazole with TSH normal. (3) ADD (attention deficit disorder): Status: Chronic Assessment and plan: No treatment lsited on med list (4) Depression: Status: Chronic Assessment and plan: Ongoing Trazodone nightly (5) Insomnia: Status: Acute Assessment and plan: Home Trazodone did not help last night will add melatonin (6) Anxiety: Status: Chronic Assessment and plan: Reporting anxiety while in the hospital Lorazepam 1mg give prior to MRI help- will repeat at bedtime (7) On deep vein thrombosis (DVT) prophylaxis: Status: Acute Assessment and plan: On LMWH discussed with Dr. Berger Subjective Subjective Patient reports: no new complaints, feels better (still having symptoms while sitting ), tolerating liquids well, tolerating a regular diet and voiding w/o difficulty; denies diarrhea, nausea, vomiting, shortness of breath or fever Exam Narrative Exam Narrative: Constitutional The patient is comfortable, c/o object moving while sitting in bed, improved lat nystagmus Neuro:alert and oriented to self, person, place time and situation. No neurological focal deficit Resp:Unlabored breathing, clear lung bilaterally Cardio: regular rhythm, S1, S2, no murmur, capillary refill<3 sec., bilateral radial and dorsalis pedis pulses are positive, palpable GI: Abdomen is not distended, soft and non tender, bowel sounds are present Back/spine/Pelvis: No back tenderness, normal alignment Integumentary: No skin lesions or rash Extremities: strength 5/5 to bilateral lower and upper extremities Psych: RASS 0, congruent mood and normal to flat affect. Objective Last Vital Signs Temp 36.7 C 12/06/24 15:58 Pulse 58 L 12/06/24 15:58 Resp 18 12/06/24 15:58 BP 121/95 H 12/06/24 15:58 Pulse Ox 95 12/06/24 15:58 Laboratory Results - last 24 hr 12/05/24 12/05/24 12/05/24 19:12 20:10 20:46 WBC 6.90 RBC 5.36 Hgb 14.9 Hct 45.8 MCV 85 MCH 27.8 MCHC 32.5 RDW 13.3 Plt Count 267 MPV 9.6 Immature Gran % 0.3 Neutrophils % 56.2 Lymphocytes % 33.8 Monocytes % 7.5 Eosinophils % 1.9 Basophils % 0.3 Nucleated RBC % 0.0 Absolute Neutrophils 3.88 Absolute Lymphocytes 2.33 Absolute Monocytes 0.52 Absolute Eosinophils 0.13 Absolute Basophils 0.02 PT 9.5 INR 0.9 APTT 24.3 D-Dimer 190 Sodium 141 Potassium 3.7 Chloride 107 Carbon Dioxide 28.2 Anion Gap 5.8 BUN 19 H Creatinine 1.1 Est GFR (CKD-EPI 2020) 79.77 Glucose 116 H Calcium 8.7 Magnesium 1.9 Total Bilirubin 0.5 AST 14 L ALT 38 Alkaline Phosphatase 59 Troponin I 6 6 NT-Pro-B Natriuret Pep 27 Total Protein 7.4 Albumin 4.1 TSH 2.57 Urine Color Yellow Urine Clarity Clear Urine pH 5.5 Ur Specific [place] 1.015 Urine Protein Trace Urine Ketones Trace H Urine Blood Negative Urine Nitrite Negative Urine Bilirubin Negative Urine Urobilinogen 0.2 Ur Leukocyte Esterase Negative Urine Glucose Negative Urine Opiates Screen Negative Urine Methadone Screen Negative Ur Barbiturates Screen Negative Ur Tricyclics Screen Negative Ur Amphetamines Screen Negative U Benzodiazepines Scrn Negative Urine Cocaine Screen Negative Ur THC Screen Negative COVID-19 Source SARS-CoV-2 (PCR) Influenza Type A (PCR) Influenza Type B (PCR) RSV (PCR) 12/05/24 12/05/24 12/06/24 22:10 23:40 03:33 WBC RBC Hgb Hct MCV MCH MCHC RDW Plt Count MPV Immature Gran % Neutrophils % Lymphocytes % Monocytes % Eosinophils % Basophils % Nucleated RBC % Absolute Neutrophils Absolute Lymphocytes Absolute Monocytes Absolute Eosinophils Absolute Basophils PT INR APTT D-Dimer Sodium Potassium Chloride Carbon Dioxide Anion Gap BUN Creatinine Est GFR (CKD-EPI 2020) Glucose Calcium Magnesium Total Bilirubin AST ALT Alkaline Phosphatase Troponin I 6 NT-Pro-B Natriuret Pep Total Protein Albumin TSH Urine Color Cancelled Urine Clarity Cancelled Urine pH Cancelled Ur Specific [place] Cancelled Urine Protein Cancelled Urine Ketones Cancelled Urine Blood Cancelled Urine Nitrite Cancelled Urine Bilirubin Cancelled Urine Urobilinogen Cancelled Ur Leukocyte Esterase Cancelled Urine Glucose Cancelled Urine Opiates Screen Urine Methadone Screen Ur Barbiturates Screen Ur Tricyclics Screen Ur Amphetamines Screen U Benzodiazepines Scrn Urine Cocaine Screen Ur THC Screen COVID-19 Source Nasopharynx SARS-CoV-2 (PCR) Negative Influenza Type A (PCR) Negative Influenza Type B (PCR) Negative RSV (PCR) Negative 12/06/24 06:19 WBC 5.38 RBC 4.97 Hgb 14.3 Hct 41.8 MCV 84 MCH 28.8 MCHC 34.2 RDW 13.3 Plt Count 234 MPV 9.6 Immature Gran % Neutrophils % Lymphocytes % Monocytes % Eosinophils % Basophils % Nucleated RBC % Absolute Neutrophils Absolute Lymphocytes Absolute Monocytes Absolute Eosinophils Absolute Basophils PT INR APTT D-Dimer Sodium 140 Potassium 3.7 Chloride 108 H Carbon Dioxide 26.2 Anion Gap 5.8 BUN 19 H Creatinine 0.8 Est GFR (CKD-EPI 2020) 105.17 Glucose 116 H Calcium 8.5 Magnesium 1.9 Total Bilirubin 0.6 AST 13 L ALT 33 Alkaline Phosphatase 47 Troponin I NT-Pro-B Natriuret Pep Total Protein 6.5 Albumin 3.5 TSH Urine Color Urine Clarity Urine pH Ur Specific [place] Urine Protein Urine Ketones Urine Blood Urine Nitrite Urine Bilirubin Urine Urobilinogen Ur Leukocyte Esterase Urine Glucose Urine Opiates Screen Urine Methadone Screen Ur Barbiturates Screen Ur Tricyclics Screen Ur Amphetamines Screen U Benzodiazepines Scrn Urine Cocaine Screen Ur THC Screen COVID-19 Source SARS-CoV-2 (PCR) Influenza Type A (PCR) Influenza Type B (PCR) RSV (PCR) Time Spent with Patient Time Spent with Patient: >50 minutes Time was spent: preparing to see the patient(eg.review tests), obtaining and/or reviewing separately otained hiistory, ordering medications,tests, procedures, referring, communicating with other health pet care technician, indepentently interpreting results, counseling the patient and care coordination
[2024-12-06 18:11] LABS: Lab Add On Test DONE
[2024-12-06 19:36] VITALS: BP 106/73; PULSE 60; RESP 20; TEMP 36.5; O2SAT 96
[2024-12-06] MEDS: Melatonin 3 MG TAB PO (20:10)
[2024-12-06 23:34] VITALS: BP 104/68; PULSE 51; RESP 18; TEMP 36.3; O2SAT 96
[2024-12-07 06:33] LABS: HCT 42.1 % (40.0-50.0); HGB 14.4 g/dL (13.5-17.5); MCH 28.9 pg (27.0-33.0); MCHC 34.2 % (32.0-36.0); MCV 85 fL (80-95); MPV 9.7 fL (8.0-11.0); Platelet Count 235 10^3/uL (130-400); RBC 4.98 10^6/uL (4.36-5.78); RDW 13.2 % (11.8-14.1); RDW-SD 40.5 fL; WBC 5.12 10^3/uL (4.4-10.8)
[2024-12-07 06:53] LABS: ALT 34 U/L (16-63); AST 13 U/L (15-37); Albumin 3.7 g/dL (3.4-5.0); Alkaline Phosphatase 49 U/L (46-116); Anion Gap 6.6 mmol/L (3-11); BUN 16 mg/dL (7-18); Bilirubin, Total 0.8 mg/dL (0.2-1.0); CO2 27.4 mmol/L (21.0-32.0); CREATININE 0.9 mg/dL (0.70-1.30); Calcium 8.7 mg/dL (8.5-10.1); Chloride 108 mmol/L (98-107); Estimated GFR 101.49 (mL/min/1.73m2); Glucose 122 mg/dL (74-106); Magnesium 1.8 mg/dL (1.8-2.4); Potassium 4.2 mmol/L (3.5-5.1); Sodium 142 mmol/L (136-145); Total Protein 6.7 g/dL (6.4-8.2)
[2024-12-07 07:19] VITALS: BP 136/84; PULSE 55; TEMP 36.4; O2SAT 98
[2024-12-07] MEDS: methIMAzole 5 MG TAB 2.5 MG PO (07:55)
[2024-12-07] MEDS: Aspirin 81 MG CHEW PO (07:56)
[2024-12-07] MEDS: Meclizine 25 MG TAB PO (07:56)
[2024-12-07] MEDS: Normal Saline Flush 10 ML SYR IVP (07:56)
[2024-12-07] MEDS: Sodium Chloride-Nasal SPRAY-ADULT 44 ML BTL NS (07:57)
--- NOTE | 2024-12-07 08:58 | W.PM.DS.N ---
Date of service: 12/07/24 Time of Service: 08:58 DS: Diagnosis Discharge Diagnosis (1) TIA (transient ischemic attack): Status: Acute (2) Hyperthyroidism: Status: Chronic (3) ADD (attention deficit disorder): Status: Chronic (4) Depression: Status: Chronic (5) Insomnia: Status: Acute (6) Right-sided lacunar infarction: Asessment and Plan: Non-acute Old right lacunar infarction as per MRI- Discharge Plan Disposition Patient Disposition: Home Condition: Improving Discharge Details Reason For Visit: TIA Admit Date/Time: 12/05/24 21:54 Admit Provider: Guille Kinsey Attending Provider: Guille Kinsey Primary Care Provider: Franck Ivey Hospital Course Hospital Course: This 54-year-old male patient with a PMhx of presented to the emergency dept on 12/05/24 for evaluation of dizzines, worsening persistant headache described as worst of my life, nausea w decreased appetite, foggy headedness, and blurred vision and transient confusion. Work up in the ED was negative for acute findings as per head CT, CTA head and neck. Non-acute right sided lacunar infarction, thyroid nodules and bilateral mucous retention cysts inthe maxillary sinuses seen. The blood work was unremarkable; neagtive ACS work-up. Tele-neurlogy consult was completed with recommendation for stroke work-up, ASA and statin. MRI was negative for acute infarction and confirmed head CT finding. Echocardiogram report mentioned normal left ventricular systolic function w/o report of PFO. Meclizine was dosing was increased for ongoing dizziness with head rotation with improving symptoms, physical therapy recommendations are for outpatient PT - for balance strengthening and further vestibular assessment. 30-day cardiac event monitor ordered on discharge. The patient remains in a sinusal rhythm as per telemetry readings and was hemodynamically stable on the day of discharge. Neurology and ENt referrals completed. The patient will need to f/u with his PCP within 7 days of discharge. Recommendations for PCP follow-up: ENT and neurology follow-ups Lipid panel and Hgb A1C 30-day cardiac event monitor reading Home Meds and New Rx's Prescriptions: New aspirin 81 mg Tablet,Chewable 81 mg PO DAILY Qty: 30 0RF atorvastatin 40 mg Tablet 40 mg PO QPM Qty: 30 0RF meclizine 25 mg Tablet 25 mg PO TID Qty: 30 0RF Rx Instructions: Take for 5 days then as needed 3 times a day Deep Sea Nasal 0.65 % Aerosol,[place] 2 spray NS QID Qty: 44 0RF Continued methimazole 5 mg tablet 2.5 mg PO .QOD Patient Comments[place] Laguer[place], [place] [facility] [place] trazodone 50 mg tablet 50 mg PO QHS PRN (Reason: sleep) Qty: 90 3RF Discharge Instructions Stand Alone Forms: Nursing Discharge Form Referrals: PHOENIX Freeman [OTHER] - (outpatient PT for for balance strengthening and further vestibular assessment) Franck Ivey, [employer]CRA[employer]NA[employer]PERVIS[employer] [Primary Care Provider] - (Follow-up within7 days of discharge please. I called your PCP office and left a voicemail to have them give you a call to make a follow up appointment. ) Damien Borges MD [ [facility] STAFF PHYSICIAN] - (Referral for: Bilateral mucous retention cysts are seen in the maxillary sinuses on CTA . Within 1-2 weeks please) Clarisse Ruff MD [ [facility] STAFF PHYSICIAN] - (non-acute right sided lacunar infarct, TIA symptoms, vertigo) Activity:: As tolerated, no driving Equipment/Supplies:: No Equipment Needed Diet:: heart healthy diabetic Discharge Orders Other Ambulatory Orders: Cardiac Event Recorder (Routine) Timeframe: 20241207 Facility: [facility] - Location: Respiratory Therapy Ordered By: Itzel Boyle DS: Summary Time Spent with Patient providing and/or coordinating discharge services: Greater than 30 minutes Status at Discharge Functional status at discharge: independent ambulation Overall status at discharge: patient is progressing back to baseline Mental Status: mental status grossly normal Speech and Movement: speech and movement normal Mood: congruent mood Affect: normal affect Quality:SDOH Health Related Social Needs: Health related social needs housing instability, housed, with risk of homelessness (Z59.811) Exam Narrative Exam Narrative: Constitutional The patient is comfortable, c/o object moving while sitting in bed, improved lat nystagmus Neuro:alert and oriented to self, person, place time and situation. No neurological focal deficit Resp:Unlabored breathing, clear lung bilaterally Cardio: regular rhythm, S1, S2, no murmur, capillary refill<3 sec., bilateral radial and dorsalis pedis pulses are positive, palpable GI: Abdomen is not distended, soft and non tender, bowel sounds are present Back/spine/Pelvis: No back tenderness, normal alignment Integumentary: No skin lesions or rash Extremities: strength 5/5 to bilateral lower and upper extremities Psych: RASS 0, congruent mood and normal to flat affect. Psych Mental Status: mental status grossly normal Speech and Movement: speech and movement normal Mood: congruent mood Affect: normal affect DS: Data Vitals/I&O Vitals and I&O: Vital Signs Temperature 36.4 C 12/07/24 07:19 Temperature Source Temporal Artery Scan 12/07/24 07:19 Pulse 55 L 12/07/24 07:19 Pulse Rhythm Regular 12/05/24 23:04 Pulse 50 L 12/05/24 23:05 Respiratory Rate 18 12/06/24 23:34 Respiratory Effort Normal 12/05/24 23:04 Respiratory Depth Normal 12/05/24 23:04 Respiratory Pattern Normal 12/05/24 23:04 Blood Pressure 136/84 12/07/24 07:19 Blood Pressure Mean 101 12/07/24 07:19 Pulse Oximetry 98 12/07/24 07:19 Oxygen Delivery Method Room Air 12/07/24 07:19 Oxygen Flow Rate 0 12/07/24 07:19 Pain Level 0 12/07/24 07:19 Comment pt refused vitals 12/07/24 03:35 Intake & Output 12/06/24 12/06/24 12/07/24 11:59 23:59 11:59 Intake Total 1280 / 1290 10 / 1290 460 / 460 Balance 1280 / 1290 10 / 1290 460 / 460 Weight 123.1 kg Intake: IV 120 / 130 10 / 130 Oral 1160 / 1160 460 / 460 Other: Comment pt voids independently Data Completed and Pending Labs on day of discharge: Labs from last 24 hours 12/07/24 06:19: WBC 5.12, RBC 4.98, Hgb 14.4, Hct 42.1, MCV 85, MCH 28.9, MCHC 34.2, RDW 13.2, Plt Count 235, MPV 9.7, Sodium 142, Potassium 4.2, Chloride 108 H, Carbon Dioxide 27.4, Anion Gap 6.6, BUN 16, Creatinine 0.9, Est GFR (CKD-EPI 2020) 101.49, Glucose 122 H, Calcium 8.7, Magnesium 1.8, Total Bilirubin 0.8, AST 13 L, ALT 34, Alkaline Phosphatase 49, Total Protein 6.7, Albumin 3.7 12/06/24 06:05: Triglycerides Pending, Total Cholesterol Pending, LDL Cholesterol, Calc Pending, HDL Cholesterol Pending, Add-On Test Request DONE PFS All Active Problems (Updated 12/07/24 @ 09:09 by Itzel Boyle APRN) On deep vein thrombosis (DVT) prophylaxis (Acute) Anxiety (Chronic) Insomnia (Acute) Multinodular thyroid (Acute) Acute CVA (cerebrovascular accident) (Acute) Depression (Chronic) TIA (transient ischemic attack) (Acute) Foot pain (Acute) ADD (attention deficit disorder) (Chronic) Hyperthyroidism (Chronic) Prediabetes (Acute) Low TSH level (Acute) Family history of diabetes mellitus (Acute) Impaired fasting glucose (Chronic) Unintended weight loss (Acute) Medical History (Updated 12/07/24 @ 09:09 by Itzel Boyle APRN) Right-sided lacunar infarction Fatigue Right ureteral stone (03/07/16) Calculus of left kidney (11/19/16) Surgical History History of colonoscopy (~10/2021) History of cystoscopy H/O hand surgery 1998 RECONSTRUCTIVE LEFT HAND SURGERY Family History Father Diabetes Hypertension Social History Smoking/Tobacco Use Status: Never Second Hand Exposure: Yes Smoking risk assessment performed?: Yes Alcohol Intake: former Drug use: Never Substance use type: does not use Caregiver/Support person: No Household members: significant other Housing: house Communication Needs: None Pets and animals: Yes Pets and animals: cat(s) Sexually active: Yes Do you think of yourself as: straight/heterosexual Current gender identity: male What is your relationship status?: living with partner How often do you talk on the phone with friends or family?: once per week Do you belong to any clubs or organized social groups?: yes Panel score (0-1 are the most socially isolated patients): 2 What type of physical activity do you participate in: none Roz/Confucianist: No preference Do you feel safe at home: Yes Do you feel safe in your relationship?: Yes Time Spent with Patient Time Spent with Patient: 70-84 minutes4 Time was spent: preparing to see the patient(eg.review tests), obtaining and/or reviewing separately otained hiistory, ordering medications,tests, procedures, referring, communicating with other health critical care unit nurse, indepentently interpreting results, counseling the patient and care coordination
[2024-12-07 09:29] LABS: Hemoglobin A1C 5.7 % (<5.7)
--- NOTE | 2024-12-07 09:30 | PT.INTREAT ---
PT Notes Visit Reasons: TIA (cardiology) Physical Therapy Inpatient Treatment Note and Supplemental Evaluation for BPPV Date: 12/09/2024 Referring Doctor: Jose Berger MD PT Orders: PT CONSULT: Eval for Assistive Device. Safety Consult for D/C. HFrEF, valvular disease. General fatigue, recent prolonged prolonged admission. Precautions: Activity as tolerated. Standard precautions. Patient Profile/Admitting Diagnosis: Patient is a 54-year-old right hand dominant male with ADD and depression who presented to the ED with symptoms of sudden onset spinning sensation, gait imbalance, worsening persistent headache, confusion, blurred vision, and nausea without emesis with head movement that started 2 days before ED arrival. Primary PT evaluated patient on 12/06/2024 for suspected TIA/CVA. She was concerned of patient demonstrating nystagmus and requested this PT to check for peripheral vertigo. Patient is admitted for TIA/CVA work up as well as hyperthryoridism. 12/05/[address] IMPRESSION: 1. No large vessel occlusion or significant stenosis on the CT angiography of the head. 2. Area of decreased attenuation in the anterior limb of the right internal capsule likely reflecting a lacunar infarct. MRI of the brain may be obtained for further characterization. 3. No occlusion or significant stenosis on the CT angiography of the neck. 4. Multinodular thyroid gland. Non-emergent thyroid ultrasound is recommended for further evaluation. HEAD MRI 12/06/2024 IMPRESSION: CEREBRAL PARENCHYMA: No focus of restricted diffusion to suggest acute infarct. No space-occupying lesion identified. There is an old lacunar infarct on the right in the anterior limb of the internal capsule. 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 She strongly recommended bringing the patient to the ED because of obvious altered mental state accompanying his gait instability and report of lightheadedness described as spinning sensation. Today patient reports much improved symptoms and was agreeable to today's consult. Patient reported objects (walker, laundry bin drifting after sitting back up from doing the Fairfax-Hallpike test. Previous Treatment: None OBJECTIVE: Posture: Good upright posturing Observation: No lines seen. WILLAM Canela present in room throughout session Mental Status: A and O x 4 Vital Signs: Closely monitored by nursing staff ROM: Right Upper Extremity: Shoulder Flexion WFL. Shoulder abduction WFL. Elbow flexion WFL. Wrist flexion WFL. Functional opening and closing of hand WFL. Left Upper Extremity: Shoulder Flexion WFL. Shoulder abduction WFL. Elbow flexion WFL. Wrist flexion WFL. Functional opening and closing of hand WFL. Right Lower Extremity: Hip flexion WFL. Hip abduction WFL. Knee flexion WFL. Ankle dorsiflexion WFL. Ankle plantarflexion WFL. Left Lower Extremity: Hip flexion WFL. Hip abduction WFL. Knee flexion WFL. Ankle dorsiflexion WFL. Ankle plantarflexion WFL. Strength: Right Upper Extremity: Shoulder flexors 5/5. Shoulder abductors 5/5. Elbow flexors 5/5. Elbow extensors 5/5. Soccer Commentator strong. Left Upper Extremity: Shoulder flexors 5/5. Shoulder abductors 5/5. Elbow flexors 5/5. Elbow extensors 5/5. Soccer Commentator strong. Right Lower Extremity: Hip flexors 5/5. Hip abductors 5/5. Knee flexors 5/5. Knee extensors 5/5. Ankle dorsiflexors 5/5. Ankle plantarflexors 5/5. Left Lower Extremity:Hip flexors 5/5. Hip abductors 5/5. Knee flexors 5/5. Knee extensors 5/5. Ankle dorsiflexors 5/5. Ankle plantarflexors 5/5. Bed Mobility/Transfers: Rolling independent Supine to sit independent Sit to supine independent Sit to stand independent Stand to sit independent Gait: 300 feet without assistive device. 08/06 report of gait being off balance (0 no imbalance, 10 worst imbalance). No path deviation. Decreased speed from baseline as patient reported some residual gait instability. Special Tests: Rhomberg: Minimal mediolateral sway but no LOB Coordination: Intact Fine Motor: Thumb opposition intact on B sides Visual Tracking: Somewhat decreased pursuit with L gaze compared to R Head Impulse Test: Corrective saccade when head was turned to R Nystagmus: No resting nystagmus on primary gaze. Increased L upbeating nystagmus with L gaze. Minimal L upbeating nystagmus with R gaze. Test of Skew: No vertical skew observed Fairfax-Halpike: L upbeating torsional nystagmus with both L and and R Socrates-Hallpike, intensity of dizziness and nystagmus increased with L maneuver Supine Roll Test: L upbeating nystagmus with both L and R supine head roll test, intensity of dizziness and nystagmus increased with L maneuver Balance: Static Sitting: Normal Dynamic Sitting: Normal Static Standing: Good Dynamic Standing: Good Special Tests: Mobility Limitations Standardized Measure [facility] AM-PAC 6 clicks Basic Mobility Inpatient Short Form: Raw Score: 24 CMS Score: 0% deficit Informed Consent/Education: Patient instructed in purpose of PT consult and plan of care. Agreeable to proceed with established PT POC to achieve personal goals. ASSESSMENT: Patient with old lacunar infarct of the anterior limb of the internal capsule which may have contributed to residual cognitive deficits/gait instability assessed today for peripheral vertigo. Suspected multi canal involvement with L upbeating torsional nystagmus in B the Fairfax-hallpike and the Supine Head Roll test on B sides with symptoms more pronounced with head turn to L. No corrective maneuver was done for this session with explanation given to the patient that further neurologic testing and review of CT scan/MRI results by neurologist may be warranted. DELGADO Robbins was updated of test result who assured that referral to neurologist was made per protocol. OP PT referral was also encouraged for either vestibular rehab or neurologic rehab. Patient is assessed as a 45554 low complexity based on the following: History: 85-year-old male with past medical history as indicated above Examination: Demonstrable impairment above Presentation: Evolving Decision Makin low complexity Goals: Patient will demonstrate independent ambulation without assistive device on level surfaces with no report of lightheadednes nor instability. Plan of Care/Treatment Plan: Functional mobility training before discharge today. Fall reduction strategies. DISCHARGE RECOMMENDATIONS: [] Home with no services [] [] Home with services [specify] [X] Home with outpatient PT for re-evaluation and continued vestibular/neurologic rehab for vertigo and gait instability [] SNF for continued rehabilitation [] [] Group Home Care [] [] SNF versus LTC based on ability to participate and progress [] TREATMENT CODE/TIME: Session 1- x 24 minutes for 2 units (9:30-9:54) Session 2-- 70295 x 33 minutes for 2 units (10:55-11:28).
[2024-12-07 09:57] VITALS: BP 122/85; BP 127/87; BP 129/88; PULSE 56; PULSE 64; PULSE 68
--- NOTE | 2024-12-07 10:52 | CMDISCH_ITS ---
Date of service: 12/07/24 Time of Service: 10:52 LACE Index Scoring Tool Questions: Length of Stay (in days): 2 Was the patient admitted via the E.D.?: Yes E.D. Visits: 1 Answers: Total Score: 6 Risk of Readmission: Low Risk Care Management Discharge Plan Reason for Hospitalization: TIA Discharge Plan: [place] will be discharged home today. He will follow up with his community providers, outpatient PT, and plan of care. He will transport via private vehicle by [email or web address]. CM provided the patient with a return to work note, identifying return to work date and restrictions; provided to the patient prior to d/c. Patient/Family Education Needs: Review of discharge instructions, activity, limitations and plan of care. Discuss Ask Me Three Services Needed at Discharge: Outpatient Therapy (PT) SDOH Health Related Social Needs: Health related social needs housing instability, house d, with risk of homelessness (Z59.811)
[2024-12-07 19:01] LABS: Calculated LDL 99 mg/dL (<100); Cholesterol 167 mg/dL (<200); HDL Cholesterol 42 mg/dL (>or=40); Triglyceride 131 mg/dL (<150)
[2024-12-07 20:09] LABS: Calculated LDL 86 mg/dL (<100); Cholesterol 152 mg/dL (<200); HDL Cholesterol 44 mg/dL (>or=40); Triglyceride 110 mg/dL (<150)
== END 2024-12-07 13:32 | disposition home or self-care (01) ==
LOC: ER 18:40 → MS 22:53
PROVIDERS: Admitting Provider Family Medicine; Emergency Provider Nurse Practitioner Family; PCP Nurse Practitioner Family; Responsible Provider Nurse Practitioner Acute Care; Visit Provider Family Medicine
DX: G45.9 Transient cerebral ischemic attack, unspecified (principal); E05.90 Thyrotoxicosis, unspecified without thyrotoxic crisis or storm; F98.8 Other specified behavioral and emotional disorders with onset usually occurring in childhood and adolescence; G47.00 Insomnia, unspecified; F41.9 Anxiety disorder, unspecified; Z79.899 Other long term (current) drug therapy; I63.81 Other cerebral infarction due to occlusion or stenosis of small artery; R73.03 Prediabetes; R51.9 Headache, unspecified; R11.0 Nausea; F32.A Depression, unspecified; Z86.73 Personal history of transient ischemic attack (TIA), and cerebral infarction without residual deficits
CPT/HCPCS: 00123; 36415; 36416; 70496; 70498; 80053; 80061; 80307; 82962; 85027; 87637; 93005; 96365; 96372; 97112; 97162; 97530; 99285; J1650; 70551; 71046; 81003; 83036; 83735; 83880; 84443; 84484; 85025; 85379; 85610; 85730; 93010; 93306; 99222; 99233; 99239; G0378; J0131; J3490

== ENCOUNTER 2024-12-10 11:32 | Outpatient (CLI) | payer BC, SELFPAY | END 2024-12-10 11:33 | disposition home or self-care (01) | PROVIDERS: PCP Nurse Practitioner Family; Visit Provider Nurse Practitioner Acute Care | DX: G45.9 Transient cerebral ischemic attack, unspecified (principal) | CPT/HCPCS: 93270 ==

== ENCOUNTER 2025-01-11 06:50 | Outpatient (CLI) | payer BC, SELFPAY ==
--- NOTE | 2025-01-11 09:21 | W.CARDEVENT ---
Date of service: 01/11/25 Time of Service: 09:21 Cardiac Event Recorder Referring Provider:: Franck Ivey Indications:: Transient cerebral ischemia Cardiac Event Note: This is a cardiac event monitor. Patient was monitored for 29 days and 1 hour. Rhythm throughout was sinus. Average heart rate overall was 67. Minimum was 44, maximum 150 There were no significant ventricular dysrhythmias. There was no atrial fibrillation, no high-grade AV block, no pauses greater than 3 seconds There were no apparent symptoms
== END 2025-01-11 06:51 | disposition home or self-care (01) ==
LOC: CARDOPNVT 06:50
PROVIDERS: PCP Nurse Practitioner Family; Visit Provider Internal Medicine Cardiovascular Disease
DX: G45.9 Transient cerebral ischemic attack, unspecified (principal)
CPT/HCPCS: 93272

== ENCOUNTER 2025-01-18 02:12 | Outpatient (CLI) | payer BC, SELFPAY ==
--- NOTE | 2025-01-18 07:30 | DI.US_ITS ---
Exam(s) US NEEDLE LOCAL OTHER WO RAD EXAM: US NEEDLE LOCAL OTHER WO RAD CLINICAL HISTORY: Multinodular thyroid,US GUIDED BX,E04.2. COMPARISON: US US THYROID from 12/28/2024 TECHNIQUE: Ultrasound was provided for Dr. Borges for guidance with performing thyroid FNA FINDINGS: Please see procedure note for details. DATA REPOSITORY:
--- NOTE | 2025-01-18 11:30 | PAPNONF_PTH ---
PATIENT: Guille Maria LOC: [facility] U#:[id number] AGE/SX: 54/M ROOM: RE01/18/[address]: Damien Borges MD : 1970 BED: DIS: 01/18/2025 SPEC #: [id number] RECD: 01/18/25 12:57 STATUS: KIKO REQ #: [id number] JACKELINE: 01/18/25 11:[address]: Damien Borges DEPT: [facility] Cytology RECD BY: Deb Herman ENTERED: 01/18/25 12:59 SP TYPE: HUSAM LOCKWOOD DR: Franck Ivey, DELGADO Tissues: 1 - BODY FLUID CYTO-FINE NEEDLE ASPIRATE-[facility] 2 - BODY FLUID CYTO-FINE NEEDLE ASPIRATE-[facility] Procedures: BODY FLUID CYTO-FINE NEEDLE ASPIRATE-[facility] Comments: [id number] (PATH FNA CONSULT) (REFRIGERATED)
--- NOTE | 2025-01-18 13:01 | W.PROCNOTE ---
Date of service: 01/18/25 Time of Service: 13:01 Procedure Note Date of procedure: 01/18/25 Procedure: Ultrasound-guided FNA, left thyroid nodule x 2, pathology present Surgeon/Proceduralist/Physician: Damien Borges Procedure Diagnosis: Multinodular thyroid, hyperthyroidism Procedure Indications: The patient has 3 nodules in her left thyroid lobe, 1 of which is spongiform, and 2 of which are fairly solid. Options were explained to the patient regarding further management. We discussed the fact that he has longstanding hypothyroidism that is presumed to be Graves', although he has never previously had an ultrasound and never previously had a thyroid uptake study. After discussion, I recommended biopsy of the 2 larger nonspongiform thyroid nodules, and explained to the patient that depending on what this shows, I may work him up with a radioactive iodine uptake study to see if he has a hot nodule or I may refer him directly onto Dr. Aparicio for consideration of thyroid lobectomy or total thyroidectomy as he complains of symptoms of neck fullness on the side of the nodules and is hypothyroid. He wished to proceed with the biopsies. Risks and benefits were discussed at length. Consent was obtained. The below was then performed.. Procedure Description: The patient was positioned in a supine position and prepped and draped in appropriate fashion. Ultrasound was used to localize the thyroid nodules on the left, and 1% lidocaine with 1/100,000 epinephrine was injected the skin and subcutaneous tissues overlying the nodules. A 25-gauge needle was then passed into the thyroid nodule and moved [id number] within the thyroid nodule, the specimen was then handed to pathology who verified cellular adequacy. 2 additional passes were made for Afirma testing. This was done for both of the solid nonspongiform appearing thyroid nodules on the left. Following this, after ensuring adequate hemostasis, sterile dressings were applied. The patient was then allowed to sit, stand, and ambulate. His vital signs remained stable. He will avoid strenuous activities today, and may use Tylenol or ibuprofen for any discomfort. He will take the Band-Aids off later on today and not replace them. He will call with any signs of infection or if he does not hear from me with regard to the pathology results within 1 week. He had no further questions. He is comfortable with this plan. Further care will depend upon the findings on the biopsies.
== END 2025-01-18 02:32 ==
LOC: DI 02:12
PROVIDERS: PCP Nurse Practitioner Family; Visit Provider Otolaryngology
DX: E04.2 Nontoxic multinodular goiter (principal)
CPT/HCPCS: 10005; 76942; 88104

== ENCOUNTER 2025-01-27 09:53 | Outpatient (CLI) | payer BC, SELFPAY | END 2025-01-27 09:54 | disposition home or self-care (01) | LOC: LBO 09:53 | PROVIDERS: PCP Nurse Practitioner Family; Visit Provider Otolaryngology | DX: E05.90 Thyrotoxicosis, unspecified without thyrotoxic crisis or storm (principal) | CPT/HCPCS: 36415; 86376 ==

== ENCOUNTER 2025-06-24 02:19 | Outpatient (CLI) | payer BC, SELFPAY ==
[2025-06-24 09:47] LABS: Abs Immature Grans 0.03 10^3/uL (0.0-0.06); HCT 42.3 % (40.0-50.0); HGB 14.3 g/dL (13.5-17.5); Immature Grans % 0.6 %; MCH 28.5 pg (27.0-33.0); MCHC 33.8 % (32.0-36.0); MCV 84 fL (80-95); MPV 9.3 fL (8.0-11.0); Platelet Count 222 10^3/uL (130-400); RBC 5.02 10^6/uL (4.36-5.78); RDW 13.2 % (11.8-14.1); RDW-SD 40.9 fL; WBC 4.99 10^3/uL (4.4-10.8)
[2025-06-24 10:57] LABS: C-Reactive Protein < 0.50 mg/dL (<=0.50)
[2025-06-24 10:59] LABS: ALT 32 U/L (10-49); AST 18 U/L (<34); Albumin 4.5 g/dL (3.2-5.0); Alkaline Phosphatase 52 U/L (46-116); Anion Gap 9.7 mmol/L (3-11); BUN 17 mg/dL (9-23); Bilirubin, Direct 0.1 mg/dL (<=0.3); Bilirubin, Total 0.50 mg/dL (0.2-1.2); CO2 23.3 mmol/L (20.0-31.0); Calcium 8.5 mg/dL (8.3-10.6); Chloride 110 mmol/L (98-107); Glucose 120 mg/dL (74-106); Potassium 3.9 mmol/L (3.5-5.1); Sodium 143 mmol/L (136-145); Total Protein 7.4 g/dL (5.7-8.2)
[2025-06-24 11:00] LABS: Iron 68 ug/dL (65-175); Total Iron Binding Capacity 387 ug/dL (250-425)
[2025-06-24 11:01] LABS: Ferritin 442 ng/mL (11-307); TSH (W/Ref FT4) 0.50 uIU/mL (0.55-4.78); Vitamin B12 1151 pg/mL (211-911)
[2025-06-27 09:31] LABS: Transferrin 316 mg/dL (201-352)
== END 2025-06-24 02:20 | disposition home or self-care (01) ==
LOC: LBO 02:19
PROVIDERS: PCP Nurse Practitioner Family; Visit Provider Nurse Practitioner Family
DX: D50.9 Iron deficiency anemia, unspecified (principal); R79.89 Other specified abnormal findings of blood chemistry
CPT/HCPCS: 36415; 80053; 80076; 82607; 82728; 83540; 83550; 84439; 84443; 84466; 85025; 86140